=== PATIENT | female | born 1950 | race Caucasian/White ===

== ENCOUNTER 2019-02-15 13:46 | Observation (INO) ==
[2019-02-15] MEDS ORDERED: 0.9 % Sodium Chloride 1,000 ML IVC ONE ×2 (13:54→15:11)
[2019-02-15] MEDS ORDERED: Isovue-370 500 ML BOTTLE IVP ONE (13:54)
[2019-02-15] MEDS ORDERED: Ondansetron 4 MG/2 ML VIAL IVP ONE (13:54)
[2019-02-15] MEDS ORDERED: KETAMINE HCL 50 MG/ML SYRINGE IV ONE ×2 (13:55→14:07)
--- NOTE | 2019-02-15 13:59 | Emergency Department Note ---
Disposition Clinical Impression: Altered mental state Qualifiers: Altered mental status type: unspecified Qualified Code(s): R41.82 - Altered mental status, unspecified Disposition: Admitted As Inpatient Condition: Fair Referrals: NONE,PCP [Primary Care Provider] - Forms: ED Satisfaction Letter Time of Disposition: 19:01 Altered Mental Status HPI - General Chief Complaint: ED Altered Mental Status Stated Complaint: AMS, N/V Time Seen by Provider: 02/15/19 13:47 Nursing Notes Reviewed: Yes Vital Signs Reviewed: Yes - History of Present Illness HPI Narrative: 68-year-old female presents from home via EMS for evaluation of altered mentation. EMS was called by her . Patient had nausea with vomiting1 1 week ago. She was seen and evaluated by outside emergency department 4 days ago and discharged home. Patient complains of headache and photophobia otherwise she is unable to provide any history due to her altered mentation. Per family, patient is becoming increasingly confused and verbally combative over last several days. Patient's daughter's concern for aneurysmal rupture. History of cerebral aneurysm 13. 12 of which have been coiled. Patient's family notes patient has not eaten for approximately 1 week. Patient has multiple medications including buspar, trazodone, gabapentin, percocet, baclofen. Patient's symptoms began appx 3-4 d after beginning baclofen. ROS not obtainable secondary to patient's altered mentation. - Related Data Home Medications Medication Instructions Recorded Confirmed Baclofen [Lioresal] 10 mg PO TID 02/15/19 02/15/19 Brimonidine 0.2% [Alphagan] 1 drop BOTH EYES BID 02/15/19 02/15/19 Buspirone HCl [Buspar] 15 mg PO TID 02/15/19 02/15/19 Carvedilol [Coreg] 3.125 mg PO BIDWM 02/15/19 02/15/19 Cholecalciferol (D-3) [Vitamin D] 2,000 unit PO DAILY 02/15/19 02/15/19 Gabapentin [Neurontin] 600 mg PO TID 02/15/19 02/15/19 OxyCODONE/APAP 10/325 [Percocet 1 each PO Q6HR PRN 02/15/19 02/15/19 10/325 MG] Potassium Chloride Elixir 20 meq PO DAILY 02/15/19 02/15/19 [Potassium Chloride] Sertraline [Zoloft] 50 mg PO DAILY 02/15/19 02/15/19 amLODIPine [Norvasc] 5 mg PO DAILY 02/15/19 02/15/19 traZODone [TraZODone] 100 mg PO HS 02/15/19 02/15/19 Allergies Allergy/AdvReac Type Severity Reaction Status Date / Time No Known Allergies Allergy Verified 02/15/19 18:36 Review of Systems: As Per HPI Limitations: ROS unobtainable due to patients medical condition Physical Exam Vital Signs Reviewed General: Patient is alert, oriented to self, unable to follow commands. Head: atraumatic, normocephalic Eye: normal appearance, PERRL, EOMI, no scleral icterus, no conjunctival injection ENT: mucous membranes dry normal external ear exam Neck: normal inspection, trachea midline, full ROM Chest: normal inspection, symmetric chest rise Respiratory: Good respiratory effort. Bilateral breath sounds are clear without wheezing, crackles, or rhonchi. Cardiovascular: Regular rate and rhythm. No clicks, rubs, gallops, or murmors. Normal heart sounds. Abdomen: Scaphoid. Bowel sounds present normoactive. Abdomen is soft, nondistended, and nontender. No guarding or rebound. No organomegaly noted. Musculoskeletal: Spontaneously moving all extremities. Skin: warm, dry, intact. Neuro: GCS 15. No focal neurologic deficits observed; she does spontaneously moving all extremity. Psych: Patient is speaking in complete worsen sentences however, they are nonsensical. Course Course Narrative: EKG dated 02/15/19 at 14:05 interpreted as sinus rhythm with a rate of 57. [place] 120, curious 25, QTC 441. Normal axis. Nonspecific ST-T changes. Compared to previous dated 04/16/2013 showing no acute ischemic changes or comparison. Patient is altered. She spontaneously moving all extremities but is not able to follow verbal commands. She was given 2 mg/kg ketamine which did transiently still her movement. After she returned to her confusion and combativeness, she was given 10 mg IM Zyprexa. Per staff, patient's urine was scant thick and white; serup-consistency of purulence. Suspect this was simply vaginal discharge. The lab was unable to run this as urinalysis because it was too thick. Urine culture is pending. Repeat straight cath obtained after IVF bolus. Urine liquid, straw colored. UA not concerning for UTI. LP unremarkable. CXR unremarkable. EKG unremarkable. Serum chemistry unremarkable. CTA shows multiple aneurysmal clips per history. 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 Concern for poly pharmacy vs dementia vs other. No definitive cause found within the ED workup. No infectious for definitive vascular etiology found for patient's altered mentation. I discussed the above with the patient's family. They are agreeable to admission for continued evaluation monitoring. I discussed the above with neurology. They are agreeable to seeing the patient on consult. Recommendation of Seroquel daily at bedtime and continued Zyprexa given the patient's agitation. I discussed the above with the admitting hospitalist, Dr. Hough. He agrees to accept the patient with neurology on consultation. Angiography CT 02/15/19 13:54 IMPRESSION: Status post bilateral frontotemporal craniotomies, with multiple aneurysm clips in the regions of the bilateral ICA terminus and bilateral MCA bifurcations, in the regions of the anterior communicating artery and the basilar tip. Artifacts related to the aneurysm clips, limiting the evaluation of the adjacent structures. 3 x 3.5 x 4.6 mm saccular aneurysm at the right MCA bifurcation with apex directed superiorly. 3.5 x 2.7 x 3.3 mm saccular aneurysm at the origin of right posterior communicating artery with apex directed posterior inferiorly. No flow limiting stenosis of the major arteries of the head. Encephalomalacia in the bilateral anterior temporal lobes, bilateral inferior frontal lobes and anterior aspects of the bilateral insula cortex, likely related to postoperative changes and/or old infarctions. No acute intracranial abnormality. The results were sent to radiology results communication. D/ / Kodak Fernandez MD / Kodak Fernandez MD Interpreting Provider: Kodak Fernandez MD Chest X-Ray 02/15/19 13:54 IMPRESSION: No evidence for acute cardiopulmonary process. D/ / Rocael Cisse MD / Rocael Cisse MD Interpreting Provider: Rocael Cisse MD I discussed the patient with the admitting hospitalist, Dr. Hough. He is agreeable to accept the patient on the condition that I speak with neurology. Vital Signs Temperature 98.4 F 02/15/19 13:47 Pulse Rate 67 02/15/19 13:47 Respiratory Rate 17 02/15/19 13:47 Blood Pressure 121/80 02/15/19 13:47 O2 Sat by Pulse Oximetry 99 02/15/19 13:47 Temperature 98.4 F 02/15/19 13:47 Pulse Rate 52 02/15/19 15:48 Respiratory Rate 19 02/15/19 15:48 Blood Pressure 149/67 02/15/19 15:48 O2 Sat by Pulse Oximetry 98 02/15/19 15:48 Oxygen Delivery Oxygen Delivery Room Air Procedures - Lumbar Puncture Consent Obtained: verbal consent, written consent Time Out Performed: Yes Patient Position: left lateral decubitus Skin Prep: Povidone-Iodine 1% Local Anesthetic: lidocaine 1% Amount of anesthesia used (mL): 6 Spinal Needle Gauge: 20G Interspace Used: L3-L4 Fluid Initially Obtained: clear Complications: other (Patient not following verbal instruction. Though calm, required multiple holders for positioning.) Altered Mental Status - Lab Data Result diagrams: 02/15/19 13:58 02/15/19 13:58 Lab Results 02/15/19 02/15/19 02/15/19 Range/Units 13:58 13:58 13:58 WBC 11.8 H (4.3-11.1) K/mcL RBC 4.41 (3.82-4.97) M/mcL Hgb 13.8 (11.5-15.4) g/dL Hct 40.9 (35.3-44.9) % MCV 92.7 (83.0-100.0) fL MCH 31.3 (28.0-33.3) pg MCHC 33.7 (31.6-35.5) g/dL RDW 13.1 (11.5-14.5) % Plt Count 218 (140-400) K/mcL MPV 10.0 (9.4-12.4) fL Immature Gran % 0.4 (0-4) % Seg Neutrophils % 66.7 % Lymphocytes % 24.7 % Monocytes % 7.7 % Eosinophils % 0.2 % Basophils % 0.3 % Neutrophils # 7.9 (1.6-8.9) K/mcL Lymphocytes # 2.9 (0.6-4.6) K/mcL Monocytes # 0.9 (0.0-1.3) K/mcL Eosinophils # 0.0 (0.0-0.6) K/mcL Basophils # 0.0 (0.0-0.2) K/mcL ESR 24 H (0-15) mm/hr PT (9.4-12.1) Seconds INR Sodium 140 (136-145) mEq/L Potassium 4.5 (3.5-5.1) mEq/L Chloride 102 (98-107) mEq/L Carbon Dioxide 22 L (23-29) mEq/L BUN 40 H (8-23) mg/dL Creatinine 0.81 (0.60-1.20) mg/dL Est GFR ( Amer) > 60 (> 60) Est GFR (Non-Af Amer) > 60 (> 60) BUN/Creatinine Ratio 49 H (6-26) Glucose 132 H (70-105) mg/dL Calculated Osmolality 302 H (280-300) Lactic Acid (0.5-2.2) mmol/L Calcium 10.5 H (8.6-10.3) mg/dL Magnesium 2.0 (1.6-2.6) mg/dL Total Bilirubin 1.0 (0.3-1.0) mg/dL AST 22 (13-39) Units/L ALT 12 (7-52) Units/L Alkaline Phosphatase 66 (34-104) Units/L Ammonia (16-53) mcmol/L Troponin I 0.03 (< 0.04) ng/mL C-Reactive Protein < 5 (Less than 10) mg/L Serum Total Protein 8.0 (6.4-8.9) g/dL Albumin 4.9 (3.5-5.7) g/dL Globulin 3.1 (2.4-3.5) g/dL Albumin/Globulin Ratio 1.6 (1.1-2.2) TSH 0.146 L (0.340-5.600) mcIU/mL Urine Color (Yellow) Urine Clarity (Clear) Urine pH (5.0-8.0) pH Units Ur Specific [place] (1.010-1.025) Urine Protein (Neg-Trace) mg/dL Urine Glucose (UA) (Normal) mg/dL Urine Ketones (Negative) mg/dL Urine Blood (Negative) Urine Nitrite (Negative) Urine Bilirubin (Negative) Urine Urobilinogen (Normal) mg/dL Ur Leukocyte Esterase (Negative) Urine Microscopic RBC (0-3) per hpf Urine Microscopic WBC (0-3) per hpf Ur Squamous Epith Cells (None-Few) per lpf Urine Bacteria (None-Few) per hpf Hyaline Casts (None-Few) per lpf CSF Volume mL CSF Appearance (Clear) CSF Color (Colorless) CSF RBC (0.000 - 0.002) M/mcL CSF Tot Nucleated Cells (0-5) TNC/mcL CSF Glucose (40-70) mg/dL CSF Xanth Comm (Not Observe) CSF Total Protein (15-45) mg/dL Salicylates < 2.5 L (15.0-30.0) mg/dL Acetaminophen < 10 L (10-20) mcg/mL Ethyl Alcohol < 10 (Less than 10) mg/dL 02/15/19 02/15/19 02/15/19 Range/Units 13:58 13:58 14:30 WBC (4.3-11.1) K/mcL RBC (3.82-4.97) M/mcL Hgb (11.5-15.4) g/dL Hct (35.3-44.9) % MCV (83.0-100.0) fL MCH (28.0-33.3) pg MCHC (31.6-35.5) g/dL RDW (11.5-14.5) % Plt Count (140-400) K/mcL MPV (9.4-12.4) fL Immature Gran % (0-4) % Seg Neutrophils % % Lymphocytes % % Monocytes % % Eosinophils % % Basophils % % Neutrophils # (1.6-8.9) K/mcL Lymphocytes # (0.6-4.6) K/mcL Monocytes # (0.0-1.3) K/mcL Eosinophils # (0.0-0.6) K/mcL Basophils # (0.0-0.2) K/mcL ESR (0-15) mm/hr PT 12.5 H (9.4-12.1) Seconds INR 1.1 Sodium (136-145) mEq/L Potassium (3.5-5.1) mEq/L Chloride (98-107) mEq/L Carbon Dioxide (23-29) mEq/L BUN (8-23) mg/dL Creatinine (0.60-1.20) mg/dL Est GFR ( Amer) (> 60) Est GFR (Non-Af Amer) (> 60) BUN/Creatinine Ratio (6-26) Glucose (70-105) mg/dL Calculated Osmolality (280-300) Lactic Acid 1.7 (0.5-2.2) mmol/L Calcium (8.6-10.3) mg/dL Magnesium (1.6-2.6) mg/dL Total Bilirubin (0.3-1.0) mg/dL AST (13-39) Units/L ALT (7-52) Units/L Alkaline Phosphatase (34-104) Units/L Ammonia 42 (16-53) mcmol/L Troponin I (< 0.04) ng/mL C-Reactive Protein (Less than 10) mg/L Serum Total Protein (6.4-8.9) g/dL Albumin (3.5-5.7) g/dL Globulin (2.4-3.5) g/dL Albumin/Globulin Ratio (1.1-2.2) TSH (0.340-5.600) mcIU/mL Urine Color (Yellow) Urine Clarity (Clear) Urine pH (5.0-8.0) pH Units Ur Specific [place] (1.010-1.025) Urine Protein (Neg-Trace) mg/dL Urine Glucose (UA) (Normal) mg/dL Urine Ketones (Negative) mg/dL Urine Blood (Negative) Urine Nitrite (Negative) Urine Bilirubin (Negative) Urine Urobilinogen (Normal) mg/dL Ur Leukocyte Esterase (Negative) Urine Microscopic RBC (0-3) per hpf Urine Microscopic WBC (0-3) per hpf Ur Squamous Epith Cells (None-Few) per lpf Urine Bacteria (None-Few) per hpf Hyaline Casts (None-Few) per lpf CSF Volume mL CSF Appearance (Clear) CSF Color (Colorless) CSF RBC (0.000 - 0.002) M/mcL CSF Tot Nucleated Cells (0-5) TNC/mcL CSF Glucose (40-70) mg/dL CSF Xanth Comm (Not Observe) CSF Total Protein (15-45) mg/dL Salicylates (15.0-30.0) mg/dL Acetaminophen (10-20) mcg/mL Ethyl Alcohol (Less than 10) mg/dL 02/15/19 02/15/19 Range/Units 15:35 16:48 WBC (4.3-11.1) K/mcL RBC (3.82-4.97) M/mcL Hgb (11.5-15.4) g/dL Hct (35.3-44.9) % MCV (83.0-100.0) fL MCH (28.0-33.3) pg MCHC (31.6-35.5) g/dL RDW (11.5-14.5) % Plt Count (140-400) K/mcL MPV (9.4-12.4) fL Immature Gran % (0-4) % Seg Neutrophils % % Lymphocytes % % Monocytes % % Eosinophils % % Basophils % % Neutrophils # (1.6-8.9) K/mcL Lymphocytes # (0.6-4.6) K/mcL Monocytes # (0.0-1.3) K/mcL Eosinophils # (0.0-0.6) K/mcL Basophils # (0.0-0.2) K/mcL ESR (0-15) mm/hr PT (9.4-12.1) Seconds INR Sodium (136-145) mEq/L Potassium (3.5-5.1) mEq/L Chloride (98-107) mEq/L Carbon Dioxide (23-29) mEq/L BUN (8-23) mg/dL Creatinine (0.60-1.20) mg/dL Est GFR ( Amer) (> 60) Est GFR (Non-Af Amer) (> 60) BUN/Creatinine Ratio (6-26) Glucose (70-105) mg/dL Calculated Osmolality (280-300) Lactic Acid (0.5-2.2) mmol/L Calcium (8.6-10.3) mg/dL Magnesium (1.6-2.6) mg/dL Total Bilirubin (0.3-1.0) mg/dL AST (13-39) Units/L ALT (7-52) Units/L Alkaline Phosphatase (34-104) Units/L Ammonia (16-53) mcmol/L Troponin I (< 0.04) ng/mL C-Reactive Protein (Less than 10) mg/L Serum Total Protein (6.4-8.9) g/dL Albumin (3.5-5.7) g/dL Globulin (2.4-3.5) g/dL Albumin/Globulin Ratio (1.1-2.2) TSH (0.340-5.600) mcIU/mL Urine Color Yellow (Yellow) Urine Clarity Clear (Clear) Urine pH 6.5 (5.0-8.0) pH Units Ur Specific [place] 1.028 H (1.010-1.025) Urine Protein Negative (Neg-Trace) mg/dL Urine Glucose (UA) Normal (Normal) mg/dL Urine Ketones 15 H (Negative) mg/dL Urine Blood Trace H (Negative) Urine Nitrite Negative (Negative) Urine Bilirubin Negative (Negative) Urine Urobilinogen Normal (Normal) mg/dL Ur Leukocyte Esterase Negative (Negative) Urine Microscopic RBC 0-3 (0-3) per hpf Urine Microscopic WBC 0-3 (0-3) per hpf Ur Squamous Epith Cells Many H (None-Few) per lpf Urine Bacteria None Seen (None-Few) per hpf Hyaline Casts None Seen (None-Few) per lpf CSF Volume 2.0 mL CSF Appearance Clear (Clear) CSF Color Colorless (Colorless) CSF RBC < 0.002 (0.000 - 0.002) M/mcL CSF Tot Nucleated Cells < 3 (0-5) TNC/mcL CSF Glucose 72 H (40-70) mg/dL CSF Xanth Comm Not Observed (Not Observe) CSF Total Protein 41 (15-45) mg/dL Salicylates (15.0-30.0) mg/dL Acetaminophen (10-20) mcg/mL Ethyl Alcohol (Less than 10) mg/dL TPA Checklist - LKW: 3-4.5 hrs Add. Warnings/Precautions Patient/family understanding: The patient/family members have been counseled and understood the risk, benefit, and alternatives of treatment.
--- NOTE | 2019-02-15 13:59 | Emergency Department Note ---
Disposition Clinical Impression: Altered mental state Disposition: Admitted As Inpatient Condition: Fair General Adult HPI - General Chief complaint: ED Altered Mental Status Stated complaint: AMS, N/V Time Seen by Provider: 02/15/19 13:47 - Related Data Home Medications Medication Instructions Recorded Confirmed Baclofen [Lioresal] 10 mg PO TID 02/15/19 02/15/19 Brimonidine 0.2% [Alphagan] 1 drop BOTH EYES BID 02/15/19 02/15/19 Buspirone HCl [Buspar] 15 mg PO TID 02/15/19 02/15/19 Carvedilol [Coreg] 3.125 mg PO BIDWM 02/15/19 02/15/19 Cholecalciferol (D-3) [Vitamin D] 2,000 unit PO DAILY 02/15/19 02/15/19 Gabapentin [Neurontin] 600 mg PO TID 02/15/19 02/15/19 OxyCODONE/APAP 10/325 [Percocet 1 each PO Q6HR PRN 02/15/19 02/15/19 10/325 MG] RX: Potassium Chloride Elixir 20 meq PO DAILY 02/15/19 02/15/19 [Potassium Chloride] RX: traZODone [TraZODone] 100 mg PO HS 02/15/19 02/15/19 Sertraline [Zoloft] 50 mg PO DAILY 02/15/19 02/15/19 amLODIPine [Norvasc] 5 mg PO DAILY 02/15/19 02/15/19 Allergies Allergy/AdvReac Type Severity Reaction Status Date / Time No Known Allergies Allergy Verified 02/15/19 18:36 Course Vital Signs Temperature 98.4 F 02/15/19 13:47 Pulse Rate 67 02/15/19 13:47 Respiratory Rate 17 02/15/19 13:47 Blood Pressure 121/80 02/15/19 13:47 O2 Sat by Pulse Oximetry 99 02/15/19 13:47 Temperature 97.7 F 02/15/19 21:13 Pulse Rate 53 02/15/19 21:13 Respiratory Rate 17 02/15/19 21:13 Blood Pressure 181/79 02/15/19 21:13 O2 Sat by Pulse Oximetry 98 02/15/19 21:13 Oxygen Delivery Oxygen Delivery Room Air Medical Decision Making - Lab Data Result diagrams: 02/15/19 13:58 02/15/19 13:58 Lab Results 02/15/19 02/15/19 02/15/19 Range/Units 13:58 13:58 13:58 WBC 11.8 H (4.3-11.1) K/mcL RBC 4.41 (3.82-4.97) M/mcL Hgb 13.8 (11.5-15.4) g/dL Hct 40.9 (35.3-44.9) % MCV 92.7 (83.0-100.0) fL MCH 31.3 (28.0-33.3) pg MCHC 33.7 (31.6-35.5) g/dL RDW 13.1 (11.5-14.5) % Plt Count 218 (140-400) K/mcL MPV 10.0 (9.4-12.4) fL Immature Gran % 0.4 (0-4) % Seg Neutrophils % 66.7 % Lymphocytes % 24.7 % Monocytes % 7.7 % Eosinophils % 0.2 % Basophils % 0.3 % Neutrophils # 7.9 (1.6-8.9) K/mcL Lymphocytes # 2.9 (0.6-4.6) K/mcL Monocytes # 0.9 (0.0-1.3) K/mcL Eosinophils # 0.0 (0.0-0.6) K/mcL Basophils # 0.0 (0.0-0.2) K/mcL ESR 24 H (0-15) mm/hr PT (9.4-12.1) Seconds INR Sodium 140 (136-145) mEq/L Potassium 4.5 (3.5-5.1) mEq/L Chloride 102 (98-107) mEq/L Carbon Dioxide 22 L (23-29) mEq/L BUN 40 H (8-23) mg/dL Creatinine 0.81 (0.60-1.20) mg/dL Est GFR ( Amer) > 60 (> 60) Est GFR (Non-Af Amer) > 60 (> 60) BUN/Creatinine Ratio 49 H (6-26) Glucose 132 H (70-105) mg/dL POC Glucose (70-99) mg/dL Calculated Osmolality 302 H (280-300) Lactic Acid (0.5-2.2) mmol/L Calcium 10.5 H (8.6-10.3) mg/dL Magnesium 2.0 (1.6-2.6) mg/dL Total Bilirubin 1.0 (0.3-1.0) mg/dL AST 22 (13-39) Units/L ALT 12 (7-52) Units/L Alkaline Phosphatase 66 (34-104) Units/L Ammonia (16-53) mcmol/L Troponin I 0.03 (< 0.04) ng/mL C-Reactive Protein < 5 (Less than 10) mg/L Serum Total Protein 8.0 (6.4-8.9) g/dL Albumin 4.9 (3.5-5.7) g/dL Globulin 3.1 (2.4-3.5) g/dL Albumin/Globulin Ratio 1.6 (1.1-2.2) TSH 0.146 L (0.340-5.600) mcIU/mL Urine Color (Yellow) Urine Clarity (Clear) Urine pH (5.0-8.0) pH Units Ur Specific [place] (1.010-1.025) Urine Protein (Neg-Trace) mg/dL Urine Glucose (UA) (Normal) mg/dL Urine Ketones (Negative) mg/dL Urine Blood (Negative) Urine Nitrite (Negative) Urine Bilirubin (Negative) Urine Urobilinogen (Normal) mg/dL Ur Leukocyte Esterase (Negative) Urine Microscopic RBC (0-3) per hpf Urine Microscopic WBC (0-3) per hpf Ur Squamous Epith Cells (None-Few) per lpf Urine Bacteria (None-Few) per hpf Hyaline Casts (None-Few) per lpf CSF Volume mL CSF Appearance (Clear) CSF Color (Colorless) CSF RBC (0.000 - 0.002) M/mcL CSF Tot Nucleated Cells (0-5) TNC/mcL CSF Glucose (40-70) mg/dL CSF Xanth Comm (Not Observe) CSF Total Protein (15-45) mg/dL Salicylates < 2.5 L (15.0-30.0) mg/dL Acetaminophen < 10 L (10-20) mcg/mL Ethyl Alcohol < 10 (Less than 10) mg/dL 02/15/19 02/15/19 02/15/19 Range/Units 13:58 13:58 14:30 WBC (4.3-11.1) K/mcL RBC (3.82-4.97) M/mcL Hgb (11.5-15.4) g/dL Hct (35.3-44.9) % MCV (83.0-100.0) fL MCH (28.0-33.3) pg MCHC (31.6-35.5) g/dL RDW (11.5-14.5) % Plt Count (140-400) K/mcL MPV (9.4-12.4) fL Immature Gran % (0-4) % Seg Neutrophils % % Lymphocytes % % Monocytes % % Eosinophils % % Basophils % % Neutrophils # (1.6-8.9) K/mcL Lymphocytes # (0.6-4.6) K/mcL Monocytes # (0.0-1.3) K/mcL Eosinophils # (0.0-0.6) K/mcL Basophils # (0.0-0.2) K/mcL ESR (0-15) mm/hr PT 12.5 H (9.4-12.1) Seconds INR 1.1 Sodium (136-145) mEq/L Potassium (3.5-5.1) mEq/L Chloride (98-107) mEq/L Carbon Dioxide (23-29) mEq/L BUN (8-23) mg/dL Creatinine (0.60-1.20) mg/dL Est GFR ( Amer) (> 60) Est GFR (Non-Af Amer) (> 60) BUN/Creatinine Ratio (6-26) Glucose (70-105) mg/dL POC Glucose (70-99) mg/dL Calculated Osmolality (280-300) Lactic Acid 1.7 (0.5-2.2) mmol/L Calcium (8.6-10.3) mg/dL Magnesium (1.6-2.6) mg/dL Total Bilirubin (0.3-1.0) mg/dL AST (13-39) Units/L ALT (7-52) Units/L Alkaline Phosphatase (34-104) Units/L Ammonia 42 (16-53) mcmol/L Troponin I (< 0.04) ng/mL C-Reactive Protein (Less than 10) mg/L Serum Total Protein (6.4-8.9) g/dL Albumin (3.5-5.7) g/dL Globulin (2.4-3.5) g/dL Albumin/Globulin Ratio (1.1-2.2) TSH (0.340-5.600) mcIU/mL Urine Color (Yellow) Urine Clarity (Clear) Urine pH (5.0-8.0) pH Units Ur Specific [place] (1.010-1.025) Urine Protein (Neg-Trace) mg/dL Urine Glucose (UA) (Normal) mg/dL Urine Ketones (Negative) mg/dL Urine Blood (Negative) Urine Nitrite (Negative) Urine Bilirubin (Negative) Urine Urobilinogen (Normal) mg/dL Ur Leukocyte Esterase (Negative) Urine Microscopic RBC (0-3) per hpf Urine Microscopic WBC (0-3) per hpf Ur Squamous Epith Cells (None-Few) per lpf Urine Bacteria (None-Few) per hpf Hyaline Casts (None-Few) per lpf CSF Volume mL CSF Appearance (Clear) CSF Color (Colorless) CSF RBC (0.000 - 0.002) M/mcL CSF Tot Nucleated Cells (0-5) TNC/mcL CSF Glucose (40-70) mg/dL CSF Xanth Comm (Not Observe) CSF Total Protein (15-45) mg/dL Salicylates (15.0-30.0) mg/dL Acetaminophen (10-20) mcg/mL Ethyl Alcohol (Less than 10) mg/dL 02/15/19 02/15/19 02/15/19 Range/Units 14:44 15:35 16:48 WBC (4.3-11.1) K/mcL RBC (3.82-4.97) M/mcL Hgb (11.5-15.4) g/dL Hct (35.3-44.9) % MCV (83.0-100.0) fL MCH (28.0-33.3) pg MCHC (31.6-35.5) g/dL RDW (11.5-14.5) % Plt Count (140-400) K/mcL MPV (9.4-12.4) fL Immature Gran % (0-4) % Seg Neutrophils % % Lymphocytes % % Monocytes % % Eosinophils % % Basophils % % Neutrophils # (1.6-8.9) K/mcL Lymphocytes # (0.6-4.6) K/mcL Monocytes # (0.0-1.3) K/mcL Eosinophils # (0.0-0.6) K/mcL Basophils # (0.0-0.2) K/mcL ESR (0-15) mm/hr PT (9.4-12.1) Seconds INR Sodium (136-145) mEq/L Potassium (3.5-5.1) mEq/L Chloride (98-107) mEq/L Carbon Dioxide (23-29) mEq/L BUN (8-23) mg/dL Creatinine (0.60-1.20) mg/dL Est GFR ( Amer) (> 60) Est GFR (Non-Af Amer) (> 60) BUN/Creatinine Ratio (6-26) Glucose (70-105) mg/dL POC Glucose 95 (70-99) mg/dL Calculated Osmolality (280-300) Lactic Acid (0.5-2.2) mmol/L Calcium (8.6-10.3) mg/dL Magnesium (1.6-2.6) mg/dL Total Bilirubin (0.3-1.0) mg/dL AST (13-39) Units/L ALT (7-52) Units/L Alkaline Phosphatase (34-104) Units/L Ammonia (16-53) mcmol/L Troponin I (< 0.04) ng/mL C-Reactive Protein (Less than 10) mg/L Serum Total Protein (6.4-8.9) g/dL Albumin (3.5-5.7) g/dL Globulin (2.4-3.5) g/dL Albumin/Globulin Ratio (1.1-2.2) TSH (0.340-5.600) mcIU/mL Urine Color Yellow (Yellow) Urine Clarity Clear (Clear) Urine pH 6.5 (5.0-8.0) pH Units Ur Specific [place] 1.028 H (1.010-1.025) Urine Protein Negative (Neg-Trace) mg/dL Urine Glucose (UA) Normal (Normal) mg/dL Urine Ketones 15 H (Negative) mg/dL Urine Blood Trace H (Negative) Urine Nitrite Negative (Negative) Urine Bilirubin Negative (Negative) Urine Urobilinogen Normal (Normal) mg/dL Ur Leukocyte Esterase Negative (Negative) Urine Microscopic RBC 0-3 (0-3) per hpf Urine Microscopic WBC 0-3 (0-3) per hpf Ur Squamous Epith Cells Many H (None-Few) per lpf Urine Bacteria None Seen (None-Few) per hpf Hyaline Casts None Seen (None-Few) per lpf CSF Volume 2.0 mL CSF Appearance Clear (Clear) CSF Color Colorless (Colorless) CSF RBC < 0.002 (0.000 - 0.002) M/mcL CSF Tot Nucleated Cells < 3 (0-5) TNC/mcL CSF Glucose 72 H (40-70) mg/dL CSF Xanth Comm Not Observed (Not Observe) CSF Total Protein 41 (15-45) mg/dL Salicylates (15.0-30.0) mg/dL Acetaminophen (10-20) mcg/mL Ethyl Alcohol (Less than 10) mg/dL Critical Care Time Critical Care Time: Yes Total Critical Care Time: 30 Attestation: The high probability of a clinically significant, sudden or life threatening deterioration of the [] system(s) required my full and direct attention, intervention and personal management. The aggregate critical care time was [] minutes. This time is in addition to time spent performing reported procedures but includes the following: [] Data Review and interpretation [] Patient assessment and monitoring of vital signs [] Documentation [] Medication orders and management Attestation Statement - Attestation Attestation: I examined this patient and my medical decision-making was reviewed with the Resident Physician. I agree with the documented findings, disposition and treatment plan as described except to the extent set forth below. [id number] time provided Patient presents to the emergency department with agitation. Most history obtained from family. The patient has been verbally combative over the past several days. She has complained of a headache and photophobia. She has a history of cerebral aneurysms. At the time of arrival the patient appears delirious. She is somewhat uncooperative with the history and physical. She will require IV ketamine to facilitate medical evaluation 16:54: No identifiable etiology of the patient's confusion has been identified. I did discuss the risks, benefits, alternatives of a lumbar puncture with the patient's family who consented on her behalf. The procedure was performed by the resident physician under my supervision.
[2019-02-15] MEDS ORDERED: OLANZapine 10 MG VIAL IM ONE (14:25)
[2019-02-15 14:29] LABS: Basophils % 0.3 %; Eosinophils % 0.2 %; Hematocrit 40.9 % (35.3-44.9); Hemoglobin 13.8 g/dL (11.5-15.4); Immature Granulocytes % 0.4 % (0-4); Lymphocytes # 2.9 K/mcL (0.6-4.6); Lymphocytes % 24.7 %; Mean Corpuscular HGB Conc 33.7 g/dL (31.6-35.5); Mean Corpuscular Hemoglobin 31.3 pg (28.0-33.3); Mean Corpuscular Volume 92.7 fL (83.0-100.0); Monocytes # 0.9 K/mcL (0.0-1.3); Monocytes % 7.7 %; Neutrophils # 7.9 K/mcL (1.6-8.9); Platelet Count 218 K/mcL (140-400); Red Blood Count 4.41 M/mcL (3.82-4.97); Red Cell Distribution Width 13.1 % (11.5-14.5); Segmented Neutrophils % 66.7 %
[2019-02-15 14:38] LABS: INR 1.1; Prothrombin Time 12.5 Seconds (9.4-12.1)
[2019-02-15] MEDS ORDERED: Water for inj. (sterile) 10 ML IV ONE (14:45)
[2019-02-15 15:08] LABS: Acetaminophen < 10 mcg/mL (10-20); Alanine Aminotransferase 12 Units/L (7-52); Albumin 4.9 g/dL (3.5-5.7); Albumin/Globulin Ratio 1.6 (1.1-2.2); Alkaline Phosphatase 66 Units/L (34-104); Aspartate Amino Transferase 22 Units/L (13-39); BUN/Creatinine Ratio 49 (6-26); Blood Urea Nitrogen 40 mg/dL (8-23); C-Reactive Protein < 5 mg/L (Less than 10); Calcium 10.5 mg/dL (8.6-10.3); Carbon Dioxide 22 mEq/L (23-29); Chloride 102 mEq/L (98-107); Ethanol < 10 mg/dL (Less than 10); Globulin 3.1 g/dL (2.4-3.5); Glucose 132 mg/dL (70-105); Osmolality,Calculated 302 (280-300); Potassium 4.5 mEq/L (3.5-5.1); Salicylate < 2.5 mg/dL (15.0-30.0); Sodium 140 mEq/L (136-145); Thyroid Stimulating Hormone 0.146 mcIU/mL (0.340-5.600); Troponin I 0.03 ng/mL (< 0.04); eGFR For Non-African Americans > 60 (> 60)
[2019-02-15 15:50] LABS: Bilirubin,Urine Negative (Negative); Blood,Urine Trace (Negative); Clarity,Urine Clear (Clear); Color,Urine Yellow (Yellow); Glucose,Urine (UA) Normal (Normal); Ketones,Urine 15 mg/dL (Negative); Leukocyte Esterase,Urine Negative (Negative); Nitrite,Urine Negative (Negative); PH,Urine 6.5 pH Units (5.0-8.0); Protein,Urine Negative (Neg-Trace); Specific Gravity,Urine 1.028 (1.010-1.025); Urobilinogen,Urine Normal (Normal)
[2019-02-15 15:56] LABS: Bacteria,Urine None Seen per hpf (None-Few); Hyaline Casts,Urine None Seen per lpf (None-Few); RBC,Urine 0-3 per hpf (0-3); Squamous Epithelial Cell,Urine Many per lpf (None-Few); WBC,Urine 0-3 per hpf (0-3)
[2019-02-15] MEDS ORDERED: *HR* Midazolam HCl 2 MG/2 ML VIAL IVP ONE (16:07)
[2019-02-15 17:03] LABS: Red Blood Cell,CSF < 0.002 M/mcL
[2019-02-15 17:04] LABS: Appearance,CSF Clear (Clear)
[2019-02-15 17:30] LABS: Glucose,CSF 72 mg/dL (40-70); Total Protein,CSF 41 mg/dL (15-45)
[2019-02-15] MEDS ORDERED: Acetaminophen 325 MG TABLET PO PRN (20:13)
[2019-02-15] MEDS ORDERED: 0.9 % Sodium Chloride 1,000 ML IVC SCH (20:15)
[2019-02-15] MEDS ORDERED: Ondansetron 4 MG/2 ML VIAL IVP PRN (21:26)
[2019-02-15] MEDS ORDERED: Ketorolac 15 MG/ML VIAL IVP ONE (21:28)
--- NOTE | 2019-02-15 21:42 | Internal Med History&Physical ---
Date of Encounter: 02/15/19 Time of Encounter: 21:39 Internal Medicine - H&P: HPI Chief complaint: AMS Admitted From: Home Plans for Post Hospital Care: Home History of present illness: Thien Cochran is a 68 year old woman with a history of bilateral frontotemporal craniotomies, with multiple aneurysm clippings done with resultant encephalomalacia and persistent saccular aneurysms who was accepted for admission by my predecessor who was brought in by her family members for change in mental status has been noted over the last several days. As per report, they state that she has been more verbally aggressive and combative; she complains daily of nausea with vomiting as well as headaches and photophobia. They noticed that she is more confused than usual and hence concern for aneurysmal rupture. Her oral intake has been poor over this past 1 week. It was noted that she is on multiple centrally sedative medications, most recently baclofen introduced 3 to 4 days prior to these changes noted. In the ER she was noted hemodynamically stable with sinus bradycardia in the 50s. She appeared notably altered and was given intravenous ketamine followed by intramuscular olanzapine. Lab work was grossly unremarkable, UA not concerning for UTI, lumbar puncture done with CSF results not suggestive of infection, chest x-ray with no acute anomalies, serum chemistry within normal limits and a CTA done showing the plethora of aneurysmal clips but no acute bleed. Through the workup, there was no evidence of an infectious or vascular etiology and her change in mental status and consideration was given to polypharmacy or dementia. Given her current condition, neurology was consulted and will be evaluated in the morning. In the interim, it was recommended that she receive a dose of Quetiapine tonight. She will be observed overnight. At the time of my assessment, family members were not present for me to ask questions to therefore the bulk of information is obtained from ED staff and chart review. She was verbal and not combative, complaining of headaches and covering her head with a towel. She had notable photophobia. No fever, chills, abdominal pain, or dysuria reported. Past Med Surg Social Fam HX - Past Medical History Medical history: other Additional medical history: brain cysts - Social History Smoking Status: Current every day smoker Alcohol use: none Drug use: marijuana Internal Medicine - H&P: Meds Baclofen [Lioresal] 10 mg PO TID 02/15/19 [History] Brimonidine 0.2% [Alphagan] 1 drop BOTH EYES BID 02/15/19 [History] Buspirone HCl [Buspar] 15 mg PO TID 02/15/19 [History] Carvedilol [Coreg] 3.125 mg PO BIDWM 02/15/19 [History] Cholecalciferol (D-3) [Vitamin D] 2,000 unit PO DAILY 02/15/19 [History] Gabapentin [Neurontin] 600 mg PO TID 02/15/19 [History] OxyCODONE/APAP 10/325 [Percocet 10/325 MG] 1 each PO Q6HR PRN 02/15/19 [History] Potassium Chloride Elixir [Potassium Chloride] 20 meq PO DAILY 02/15/19 [History] Sertraline [Zoloft] 50 mg PO DAILY 02/15/19 [History] amLODIPine [Norvasc] 5 mg PO DAILY 02/15/19 [History] traZODone [TraZODone] 100 mg PO HS 02/15/19 [History] Allergy/AdvReac Type Severity Reaction Status Date / Time No Known Allergies Allergy Verified 02/15/19 18:36 All Systems PM: A 10-system review of systems was performed and is negative for pertinent findings except as documented above in the HPI.Family history reviewed and found non-contributory. - Constitutional Vitals: Temp Pulse Resp BP Pulse Ox 97.7 F 53 17 181/79 98 02/15/19 21:13 02/15/19 21:13 02/15/19 21:13 02/15/19 21:13 02/15/19 21:13 Exam: Vitals: Reviewed General: Cachectic elderly woman Skin: Warm, dry HEENT: Moist mucous membranes. No conjunctivae pallor. Neck: No lymphadenopathy. No JVD. No carotid bruits. No palpable thyroid. Chest: Normal thoracic expansion. Normal breath sounds. Clear to auscultation. Heart: Normal S1 & S2; rhythmic. No rubs or murmurs. Abdomen: Non-distended, soft and non-tender to palpation. No peritoneal react ion. Extremities: No clubbing, cyanosis or edema. No calf tenderness. Normal distal pulses. Neurological: Awake, alert and oriented to person. No focal deficits apparent. Psych: Tangential. Internal Med - H&P Results - Labs CBC & Chem 7: 02/15/19 13:58 02/15/19 13:58 Labs: Short CBC 02/15/19 Range/Units 13:58 WBC 11.8 H (4.3-11.1) K/mcL Hgb 13.8 (11.5-15.4) g/dL Hct 40.9 (35.3-44.9) % Plt Count 218 (140-400) K/mcL Neutrophils # 7.9 (1.6-8.9) K/mcL BMP 02/15/19 13:58 Sodium 140 Potassium 4.5 Chloride 102 Carbon Dioxide 22 L BUN 40 H Creatinine 0.81 Glucose 132 H Calcium 10.5 H Cardiac Enzymes 02/15/19 Range/Units 13:58 Troponin I 0.03 (< 0.04) ng/mL Liver Function 02/15/19 Range/Units 13:58 Total Bilirubin 1.0 (0.3-1.0) mg/dL AST 22 (13-39) Units/L ALT 12 (7-52) Units/L Alkaline Phosphatase 66 (34-104) Units/L Albumin 4.9 (3.5-5.7) g/dL Urine 02/15/19 Range/Units 15:35 Urine Color Yellow (Yellow) Urine Clarity Clear (Clear) Urine pH 6.5 (5.0-8.0) pH Units Ur Specific [place] 1.028 H (1.010-1.025) Urine Protein Negative (Neg-Trace) mg/dL Urine Glucose (UA) Normal (Normal) mg/dL - Impressions ITS Impressions Angiography CT 02/15/19 13:54 IMPRESSION: Status post bilateral frontotemporal craniotomies, with multiple aneurysm clips in the regions of the bilateral ICA terminus and bilateral MCA bifurcations, in the regions of the anterior communicating artery and the basilar tip. Artifacts related to the aneurysm clips, limiting the evaluation of the adjacent structures. 3 x 3.5 x 4.6 mm saccular aneurysm at the right MCA bifurcation with apex directed superiorly. 3.5 x 2.7 x 3.3 mm saccular aneurysm at the origin of right posterior communicating artery with apex directed posterior inferiorly. No flow limiting stenosis of the major arteries of the head. Encephalomalacia in the bilateral anterior temporal lobes, bilateral inferior frontal lobes and anterior aspects of the bilateral insula cortex, likely related to postoperative changes and/or old infarctions. No acute intracranial abnormality. The results were sent to radiology results communication. D/ / Kodak Fernandez MD / Kodak Fernandez MD Interpreting Provider: Kodak Fernandez MD Chest X-Ray 02/15/19 13:54 IMPRESSION: No evidence for acute cardiopulmonary process. D/ / Rocael Cisse MD / Rocael Cisse MD Interpreting Provider: Rocael Cisse MD - Assessment and Plan (1) Encephalopathy acute Current Visit: Yes Status: Acute Assessment and plan: Unclear etiology. Will need to contact family members to get a better story about the onset of change and what the exact new changes are in comparison to her baseline. Thus far a vascular and infectious etiology has not been identified. Concern for vascular dementia should be considered as well as medication side effects. Will hold off on any of her potentially TABLE RUNNER altering medications for now until evaluated by neurology. Attempt to control her headaches and nausea. Given the concomitant bradycardia, with headache and nausea, I have the concern for developing intracranial hypertension however evidence of this was not seen on CT. Will need close clinical monitoring and perhaps repeat imaging. Given the 1 week evolution of symptoms however, this would already have appeared on imaging therefore making it less likely to be at play. (2) History of cerebral aneurysm repair Current Visit: Yes Status: Acute Assessment and plan: Appears to be stable based on CT. She is unable to tell me when and where it was done. Will continue to monitor neurologic status. (3) Malnutrition Current Visit: Yes Status: Acute Assessment and plan: Notably malnourished per exam. Will consult nutrition for PO supplementation. Qualifiers: Malnutrition type: protein-calorie malnutrition Protein-calorie malnutrition severity: moderate Qualified Code(s): E44.0 - Moderate protein-calorie malnutrition (4) Low TSH level Current Visit: Yes Status: Acute Assessment and plan: It was seen to be normal in 2013. It does not appear she is on any thyroid supplements which would be causing TSH suppression. Unclear if this is contributing to her mental status changes. Will check free T3 /T4 for assessment. - Time Spent With Patient Total time spent is greater than 50% in coordination of care (as documented) at patient's floor/unit and/or counseling patient: Greater than 35 minutes
[2019-02-16] MEDS ORDERED: *HR* Heparin 5,000 UNIT/ML VIAL SQ SCH (06:00)
[2019-02-16 07:18] LABS: Basophils # 0.1 K/mcL (0.0-0.2); Basophils % 0.7 %; Eosinophils # 0.1 K/mcL (0.0-0.6); Eosinophils % 0.8 %; Hematocrit 35.5 % (35.3-44.9); Immature Granulocytes % 0.5 % (0-4); Lymphocytes # 2.7 K/mcL (0.6-4.6); Lymphocytes % 32.3 %; Mean Corpuscular HGB Conc 33.2 g/dL (31.6-35.5); Mean Corpuscular Hemoglobin 31.1 pg (28.0-33.3); Mean Corpuscular Volume 93.4 fL (83.0-100.0); Mean Platelet Volume 9.5 fL (9.4-12.4); Monocytes # 0.8 K/mcL (0.0-1.3); Monocytes % 9.3 %; Neutrophils # 4.8 K/mcL (1.6-8.9); Platelet Count 145 K/mcL (140-400); Red Cell Distribution Width 12.8 % (11.5-14.5); Segmented Neutrophils % 56.4 %
[2019-02-16 07:19] LABS: Hemoglobin 11.8 g/dL (11.5-15.4)
[2019-02-16 08:12] LABS: BUN/Creatinine Ratio 42 (6-26); Blood Urea Nitrogen 18 mg/dL (8-23); Calcium 9.1 mg/dL (8.6-10.3); Carbon Dioxide 24 mEq/L (23-29); Chloride 101 mEq/L (98-107); Glucose 96 mg/dL (70-105); Osmolality,Calculated 282 (280-300); Sodium 135 mEq/L (136-145); Triiodothyronine (T3) Free 2.71 pg/mL (2.50-3.90); eGFR For Non-African Americans > 60 (> 60)
--- NOTE | 2019-02-16 09:08 | Internal Med Progress Note ---
Hospitalist Progress Note - Encounter Date of Encounter: 02/16/19 Time of Encounter: 11:00 - Subjective Interval History: Patient with past medical history significant for bilateral frontotemporal craniotomies, with multiple aneurysm clippings done with resultant encephalomalacia and persistent saccular aneurysms who presents due to altered mental status. No acute findings on CTA of the head; neurology following - Exam Vitals: Temp Pulse Resp BP Pulse Ox 98.3 F 57 13 156/87 97 02/16/19 06:55 02/16/19 06:55 02/16/19 06:55 02/16/19 06:20 02/16/19 06:20 Exam: Gen.: Nonacute distress, alert and oriented 3 ENT: Mucosal membranes moist Respiratory: Lungs are clear to auscultation bilaterally without any wheezing rhonchi or rales Cardiovascular: Normal S1 and S2 regular rate rhythm no murmurs rubs or gallops Abdomen: Soft, nontender and nondistended with positive bowel sounds Extremities: No lower extremity edema Skin: Normal color - Assessment and Plan (1) Encephalopathy acute Current Visit: Yes Status: Acute Assessment and Plan: Patient presents with altered mental status Unclear etiology. Etiology unclear as there is no evidence of vascular or infectious source. Will continue to hold any potentially SAILING OFFICER altering medications. Neurology consulted and does not think neurologically related but suspect psy chological with recommendations for psychiatry consult. Psychiatry consulted and appreciate recommendations (2) History of cerebral aneurysm repair Current Visit: Yes Status: Acute Assessment and Plan: Appears to be stable based on CT. Will continue to monitor neurologic status. Neurology consulted and appreciate recommendations (3) Malnutrition Current Visit: Yes Status: Acute Assessment and Plan: BMI of 17.6 Nutrition consulted and appreciate recommendations (4) Low TSH level Current Visit: Yes Status: Acute - Time Spent with Patient Total time spent is greater than 50% in coordination of care (as documented) at patient's floor/unit and/or counseling patient: Internal Medicine: Result - Labs CBC & Chem 7: 02/16/19 07:07 02/16/19 07:07 Labs: Short CBC 02/15/19 02/16/19 Range/Units 13:58 07:07 WBC 11.8 H 8.4 (4.3-11.1) K/mcL Hgb 13.8 11.8 D (11.5-15.4) g/dL Hct 40.9 35.5 (35.3-44.9) % Plt Count 218 145 (140-400) K/mcL Neutrophils # 7.9 4.8 (1.6-8.9) K/mcL BMP 02/15/19 02/16/19 13:58 07:07 Sodium 140 135 L Potassium 4.5 3.0 L D Chloride 102 101 Carbon Dioxide 22 L 24 BUN 40 H 18 Creatinine 0.81 0.43 L Glucose 132 H 96 Calcium 10.5 H 9.1 Cardiac Enzymes 02/15/19 Range/Units 13:58 Troponin I 0.03 (< 0.04) ng/mL Liver Function 02/15/19 Range/Units 13:58 Total Bilirubin 1.0 (0.3-1.0) mg/dL AST 22 (13-39) Units/L ALT 12 (7-52) Units/L Alkaline Phosphatase 66 (34-104) Units/L Albumin 4.9 (3.5-5.7) g/dL Urine 02/15/19 Range/Units 15:35 Urine Color Yellow (Yellow) Urine Clarity Clear (Clear) Urine pH 6.5 (5.0-8.0) pH Units Ur Specific [place] 1.028 H (1.010-1.025) Urine Protein Negative (Neg-Trace) mg/dL Urine Glucose (UA) Normal (Normal) mg/dL - ABG Interpretation ABG results: PT/INR, D-dimer PT 12.5 Seconds (9.4-12.1) H 02/15/19 13:58 - Impressions Impressions Angiography CT 02/15/19 13:54 IMPRESSION: Status post bilateral frontotemporal craniotomies, with multiple aneurysm clips in the regions of the bilateral ICA terminus and bilateral MCA bifurcations, in the regions of the anterior communicating artery and the basilar tip. Artifacts related to the aneurysm clips, limiting the evaluation of the adjacent structures. 3 x 3.5 x 4.6 mm saccular aneurysm at the right MCA bifurcation with apex directed superiorly. 3.5 x 2.7 x 3.3 mm saccular aneurysm at the origin of right posterior communicating artery with apex directed posterior inferiorly. No flow limiting stenosis of the major arteries of the head. Encephalomalacia in the bilateral anterior temporal lobes, bilateral inferior frontal lobes and anterior aspects of the bilateral insula cortex, likely related to postoperative changes and/or old infarctions. No acute intracranial abnormality. The results were sent to radiology results communication. D/ / Kodak Fernandez MD / Kodak Fernandez MD Interpreting Provider: Kodak Fernandez MD Chest X-Ray 02/15/19 13:54 IMPRESSION: No evidence for acute cardiopulmonary process. D/ / Rocael Cisse MD / Rocael Cisse MD Interpreting Provider: Rocael Cisse MD Consult Discharge Plan - Plan Referrals: NONE,PCP [Primary Care Provider] - (3) Malnutrition Qualifiers: Malnutrition type: protein-calorie malnutrition Protein-calorie malnutrition severity: moderate Qualified Code(s): E44.0 - Moderate protein-calorie malnutrition
[2019-02-16] MEDS: Cholecalciferol (D-3) 1,000 UNIT TABLET PO SCH (09:47)
[2019-02-16] MEDS: amLODIPine 5 MG TABLET PO SCH (09:48)
[2019-02-16] MEDS: Potassium Chloride Elixir 20 MEQ/15 ML UDC PO SCH (09:49)
--- NOTE | 2019-02-16 10:15 | Electrocardiograph Report ---
[facility] Test Date: 2019-02-15 Pat Name: Aditi Cochran Department: [id number] Room: 2NE33 Gender: F Subscription Crew Leader: : [id number] Requested By: Tobin Up Order Number: [id number] Reading MD: Dennis Garcia Measurements Intervals [place] Rate: 57 P: 54 [place]: 120 QRS: 81 QRSD: 95 T: -3 QT: 452 QTc: 441 Interpretive Statements Sinus rhythm Borderline right axis deviation Borderline T abnormalities, anterior leads Electronically Signed On 02-16-2019 10:13:14 EDT by Dennis Garcia
--- NOTE | 2019-02-16 10:16 | Neurology - Consult Note ---
<Esperanza Pérez - Last Filed: 02/16/19 11:34> Date of Encounter: 02/16/19 Time of Encounter: 09:49 Assessment and Plan (1) Encephalopathy acute Current Visit: Yes Status: Acute 68-year-old female with past medical history of sacular aneurysms-clipped and multiple craniotomies presented due to altered mental status. There is no family at bedside to cooperate history. Patient had reportedly been verbally abusive, combative, n/v headache for the past few days. -Urinalysis, toxicology screen unremarkable. -Lumbar puncture with CSF studies was unremarkable not showing infection or xanthochromia. -Chest x-ray was unremarkable for acute cardiopulmonary process. -Head angiography CT demonstrating status post bilateral frontotemporal cr aniotomy is with multiple aneurysm clips, encephalomalcia in the bilateral anterior temporal lobes, bilateral inferior and anterior temporal lobes, bilateral inferior frontal lobes and aspects of the bilateral insula cortex likely related to postop changes. No acute intracranial abnormality. 3 x 3.5 x 4.6 mm secular aneurysm at the right MCA bifurcation with apex directed superiorly. 3.5 x 2.6 .3 .3 mm secular aneurysm at the origin of right posterior communicating artery with apex directed posterior inferiorly. Recommendation: Angiography CT of head and lumbar puncture CSF were negative for acute infarction or acute hemorrhage. This appears to be more of a psychiatric issue. Recommend that the patient have a psychiatry consult evaluation. Will sign off at this time. (2) History of cerebral aneurysm repair Current Visit: Yes Status: Acute Patient has a history of multiple aneurysms that are s/p clipped. History of Present Illness Chief complaint: Altered mental status HPI: Ms. Cochran is a 68 year old female with a past medical history of bilateral frontotemporal craniotomy is, multiple aneurysm clippings done with resultant encephalomalacia and persistent sacular aneurysms who presented to [facility] due to altered mental status on 02/15/2019. Neurology was consulted on 02/15/2019 for altered mental status. Upon my examination of the patient she is confused but oriented to person in place. She goes on tangents about different conversations and theme songs. She is refusing to answer some questions and did not once me to examine her further or ask any questions. There is staff at the bedside but no family at the bedside. Most of history is taken for medical records. Apparently for the past few days the patient had been verbally abusive, combative, nausea, vomiting, poor oral intake, photophobia. They were concerned of ruptured aneurysm. The staff informed that she has been physically combative during some physical assessments. The patient stated that she is nauseated. She stated her family told her it has been gone for 4 days. She stated she may have had a mild headache but no longer does. She denies hitting her head. She has blurry vision when looking into the light. When asked about fever, chills, dysphasia, ataxia, weakness, sensation change, fall she refuses to answer and stated that she cannot remember and stated I need to ask her . Cannot complete physical exam due to patient refusal. In the ED the patient was hemodynamically stable sinus bradycardia in the 50s. Due to her altered mental status she was given IV ketamine and intramuscular olanzapine. Urinalysis, toxicology screen unremarkable. Lumbar puncture with CSF studies was unremarkable not showing infection or xanthochromia. Chest x- ray was unremarkable for acute cardiopulmonary process. -Head angiography CT demonstrating status post bilateral frontotemporal craniotomy is with multiple aneurysm clips, encephalomalcia in the bilateral anterior temporal lobes, bilateral inferior and anterior temporal lobes, bilateral inferior frontal lobes and aspects of the bilateral insula cortex likely related to postop changes. No acute intracranial abnormality. 3 x 3.5 x 4.6 mm secular aneurysm at the right MCA bifurcation with apex directed superiorly. 3.5 x 2.6 .3 .3 mm secular aneurysm at the origin of right posterior communicating artery with apex directed posterior inferiorly. Past Med Surg Social Fam HX - Past Medical History Source: old records reviewed Medical history: other Additional medical history: brain cysts - Past Surgical History Surgical History: other Additional surgical history: Per H & P Report - craniotomies with aneurysm clippings, per ER Physician report "cerebral aneurysm x 13, 12 of which have been coiled". - Social History Smoking Status: Current every day smoker Alcohol use: none Drug use: marijuana - Family History Mother Age at : 71 Cause of : many brain aneuyrsm Hx Family Cardiac Disorders: Yes (htn) Medications and Allergies Baclofen [Lioresal] 10 mg PO TID 02/15/19 [History] Brimonidine 0.2% [Alphagan] 1 drop BOTH EYES BID 02/15/19 [History] Buspirone HCl [Buspar] 15 mg PO TID 02/15/19 [History] Carvedilol [Coreg] 3.125 mg PO BIDWM 02/15/19 [History] Cholecalciferol (D-3) [Vitamin D] 2,000 unit PO DAILY 02/15/19 [History] Gabapentin [Neurontin] 600 mg PO TID 02/15/19 [History] OxyCODONE/APAP 10/325 [Percocet 10/325 MG] 1 each PO Q6HR PRN 02/15/19 [History] Potassium Chloride Elixir [Potassium Chloride] 20 meq PO DAILY 02/15/19 [History] Sertraline [Zoloft] 50 mg PO DAILY 02/15/19 [History] amLODIPine [Norvasc] 5 mg PO DAILY 02/15/19 [History] traZODone [TraZODone] 100 mg PO HS 02/15/19 [History] Allergy/AdvReac Type Severity Reaction Status Date / Time No Known Allergies Allergy Verified 02/15/19 18:36 ROS unobtainable: due to mental status All Systems: The remainder of the systems were reviewed and are negative Physical Examination - Vital Signs Vital Signs: Initial Vital Signs Temp Pulse Resp BP Pulse Ox 98.4 F 67 17 121/80 99 02/15/19 13:47 02/15/19 13:47 02/15/19 13:47 02/15/19 13:47 02/15/19 13:47 - Exam Exam: Cardiac: RRR, no murmor *cannot perform full neurologic exam due to patient refusal and combativeness. - Constitutional General appearance: chronically ill, older than stated age - Neurologic Mental Status Examination: awake, alert, oriented to person, no aphasia, does n ot follow commands, makes eye contact, inattentive, rambling, not reliable historian Results - Laboratory Findings CBC and BMP: 02/16/19 07:07 02/16/19 07:07 Abnormal lab findings: Abnormal lab results RBC 3.80 M/mcL (3.82-4.97) L 02/16/19 07:07 ESR 24 mm/hr (0-15) H 02/15/19 13:58 PT 12.5 Seconds (9.4-12.1) H 02/15/19 13:58 Sodium 135 mEq/L (136-145) L 02/16/19 07:07 Potassium 3.0 mEq/L (3.5-5.1) L D 02/16/19 07:07 Creatinine 0.43 mg/dL (0.60-1.20) L 02/16/19 07:07 BUN/Creatinine Ratio 42 (6-26) H 02/16/19 07:07 TSH 0.146 mcIU/mL (0.340-5.600) L 02/15/19 13:58 Total T3 0.50 ng/mL (0.87-1.78) L 02/16/19 07:07 Ur Specific [place] 1.028 (1.010-1.025) H 02/15/19 15:35 Urine Ketones 15 mg/dL (Negative) H 02/15/19 15:35 Urine Blood Trace (Negative) H 02/15/19 15:35 Ur Squamous Epith Cells Many per lpf (None-Few) H 02/15/19 15:35 CSF Glucose 72 mg/dL (40-70) H 02/15/19 16:48 Salicylates < 2.5 mg/dL (15.0-30.0) L 02/15/19 13:58 Acetaminophen < 10 mcg/mL (10-20) L 02/15/19 13:58 Consult Discharge Plan - Plan Referrals: NONE,PCP [Primary Care Provider] - <Guillermo Walker I - Last Filed: 02/16/19 16:23> Date of Encounter: 02/16/19 Assessment and Plan (1) Altered mental state Current Visit: Yes Status: Acute Pt was seen and examined, my medical decision was reviewed with the Resident Physician, I agree with the documented findings, disposition and treatment plan, as described except to the extent set forth below This patient was been admitted with the agitation delirious state limited neurological examination as patient would not allow to be examined but overall she is alert awake and oriented to person and place, able to follow simple directions. No significant confusion noted now She is able to move all 4 extremities equally without any focal motor deficit. Patient already had a CT angiogram that shows multiple aneurysmal clipping without any evidence of bleed. CSF analysis also negative for any bleed as well as negative for any COMPOUND SPECIALIST infection. Her symptoms seems to be more off psychiatric nature than anything else. Strongly recommend psych evaluation, she would likely need inpatient hospitalization Also check for other metabolic abnormalities that may be contributing to her symptoms Guillermo Walker MD Qualifiers: Altered mental status type: unspecified (2) History of cerebral aneurysm repair Current Visit: Yes Status: Acute CT angiogram did not show any evidence of bleed, no evidence of any bleed on CSF analysis Stable from neurology standpoint Guillermo Walker MD History of Present Illness HPI: Ms. Cochran is a 68 year old female All Systems: The remainder of the systems were reviewed and are negative Physical Examination - Vital Signs Vital Signs: Initial Vital Signs Temp Pulse Resp BP Pulse Ox 98.4 F 67 17 121/80 99 02/15/19 13:47 02/15/19 13:47 02/15/19 13:47 02/15/19 13:47 02/15/19 13:47 Results - Laboratory Findings CBC and BMP: 02/16/19 07:07 02/16/19 07:07 Abnormal lab findings: Abnormal lab results RBC 3.80 M/mcL (3.82-4.97) L 02/16/19 07:07 ESR 24 mm/hr (0-15) H 02/15/19 13:58 PT 12.5 Seconds (9.4-12.1) H 02/15/19 13:58 Sodium 135 mEq/L (136-145) L 02/16/19 07:07 Potassium 3.0 mEq/L (3.5-5.1) L D 02/16/19 07:07 Creatinine 0.43 mg/dL (0.60-1.20) L 02/16/19 07:07 BUN/Creatinine Ratio 42 (6-26) H 02/16/19 07:07 TSH 0.146 mcIU/mL (0.340-5.600) L 02/15/19 13:58 Total T3 0.50 ng/mL (0.87-1.78) L 02/16/19 07:07 Ur Specific [place] 1.028 (1.010-1.025) H 02/15/19 15:35 Urine Ketones 15 mg/dL (Negative) H 02/15/19 15:35 Urine Blood Trace (Negative) H 02/15/19 15:35 Ur Squamous Epith Cells Many per lpf (None-Few) H 02/15/19 15:35 CSF Glucose 72 mg/dL (40-70) H 02/15/19 16:48 Salicylates < 2.5 mg/dL (15.0-30.0) L 02/15/19 13:58 Acetaminophen < 10 mcg/mL (10-20) L 02/15/19 13:58
[2019-02-16] MEDS ORDERED: Isovue-370 500 ML BOTTLE IVP ONE (15:15)
[2019-02-16] MEDS: *HR* OxyCODONE/APAP 10/325 TABLET PO PRN (16:35)
--- NOTE | 2019-02-16 21:07 | Electrocardiograph Report ---
[address] [place] [address] Test Date: 2019-02-16 Pat Name: Aditi Cochran Department: 111 Room: 2NE33 Gender: F [employer]visor [employer]: GRANT : 1950 Requested By: Bree Higgins Order Number: [id number] Reading MD: Wanda De Leon Measurements Intervals [place] Rate: 60 P: 49 IL: 101 QRS: 54 QRSD: 94 T: -11 QT: 431 QTc: 431 Interpretive Statements SINUS RHYTHM WITH SHORT [place] INTERVAL MODERATE T-WAVE ABNORMALITY, CONSIDER ANTEROLATERAL ISCHEMIA Electronically Signed On 02-16-2019 21:05:54 EDT by Wanda De Leon
[2019-02-17] MEDS: Cholecalciferol (D-3) 1,000 UNIT TABLET PO SCH (08:25)
[2019-02-17] MEDS: amLODIPine 5 MG TABLET PO SCH (08:25)
[2019-02-17] MEDS: Potassium Chloride Elixir 20 MEQ/15 ML UDC PO SCH (08:26)
[2019-02-17 08:49] LABS: Basophils # 0.1 K/mcL (0.0-0.2); Basophils % 0.6 %; Eosinophils # 0.1 K/mcL (0.0-0.6); Eosinophils % 0.7 %; Hematocrit 41.4 % (35.3-44.9); Hemoglobin 14.3 g/dL (11.5-15.4); Immature Granulocytes % 0.5 % (0-4); Lymphocytes # 2.2 K/mcL (0.6-4.6); Lymphocytes % 21.2 %; Mean Corpuscular HGB Conc 34.5 g/dL (31.6-35.5); Mean Corpuscular Hemoglobin 31.2 pg (28.0-33.3); Mean Corpuscular Volume 90.4 fL (83.0-100.0); Mean Platelet Volume 9.7 fL (9.4-12.4); Monocytes % 9.1 %; Neutrophils # 7.2 K/mcL (1.6-8.9); Platelet Count 190 K/mcL (140-400); Red Blood Count 4.58 M/mcL (3.82-4.97); Red Cell Distribution Width 12.6 % (11.5-14.5); Segmented Neutrophils % 67.9 %
[2019-02-17 09:05] LABS: BUN/Creatinine Ratio 40 (6-26); Blood Urea Nitrogen 21 mg/dL (8-23); Calcium 10.2 mg/dL (8.6-10.3); Carbon Dioxide 25 mEq/L (23-29); Chloride 98 mEq/L (98-107); Glucose 99 mg/dL (70-105); Magnesium 1.8 mg/dL (1.6-2.6); Osmolality,Calculated 287 (280-300); Phosphorous 3.2 mg/dL (2.7-4.5); Potassium 3.2 mEq/L (3.5-5.1); Sodium 137 mEq/L (136-145); eGFR For Non-African Americans > 60 (> 60)
--- NOTE | 2019-02-17 09:18 | Neurology Progress Note ---
<Esperanza Pérez - Last Filed: 02/17/19 11:18> Date of Encounter: 02/17/19 Time of Encounter: 09:17 Assessment and Plan (1) Encephalopathy acute Current Visit: Yes Status: Acute 68-year-old female with past medical history of sacular aneurysms-clipped and multiple craniotomies presented due to altered mental status. There is no family at bedside to cooperate history. Patient had reportedly been verbally abusive, combative, n/v headache for the past few days. -Suspect that this is psychiatric nature or metabolic -Urinalysis, toxicology screen unremarkable. -Lumbar puncture with CSF studies was unremarkable not showing infection or xa nthochromia. -Chest x-ray was unremarkable for acute cardiopulmonary process. -Head angiography CT demonstrating status post bilateral frontotemporal craniotomy is with multiple aneurysm clips, encephalomalcia in the bilateral anterior temporal lobes, bilateral inferior and anterior temporal lobes, bilateral inferior frontal lobes and aspects of the bilateral insula cortex likely related to postop changes. No acute intracranial abnormality. 3 x 3.5 x 4.6 mm secular aneurysm at the right MCA bifurcation with apex directed superiorly. 3.5 x 2.6 .3 .3 mm secular aneurysm at the origin of right posterior communicating artery with apex directed posterior inferiorly. Recommendation: Angiography CT of head and lumbar puncture CSF were negative for acute infarction or acute hemorrhage. This appears to be more of a psychiatric or metabolic. Strongly suggest a psychiatry consult evaluation. Psychiatry was present in room prior to my examination. Patient was cooperative today and non-combative. Neurologic exam was able to be performed today and was non-focal for deficits (see physical exam for more detail). (2) History of cerebral aneurysm repair Current Visit: Yes Status: Acute Patient has a history of multiple aneurysms that are s/p clipped. Subjective Principal diagnosis: Altered mental status Interval history: Patient seen and examined at bedside. She is alert and oriented to person and place. She denies headache, fever, chills. She does still have blurry vision. She also reports abdominal pain that she thinks is chronic and due to constipation. She is still slightly confused but not combative today and is more cooperative. Objective - Constitutional Vitals: Temp Pulse Resp BP Pulse Ox 98.0 F 72 16 159/99 98 02/17/19 05:36 02/17/19 07:26 02/17/19 05:36 02/17/19 07:26 02/17/19 07:26 Exam: Examination: General Examination: *CONSTITUTIONAL: alert and oriented x2 No acute distress *GENERAL APPEARANCE OF PATIENT elderly female, appropriate hygiene *EYES: pupils equal, round, reactive to light and accommodation, conjunctiva clear Musculoskeletal: *GAIT AND STATION not assessed *ASSESSMENT OF MUSCLE STRENGTH IN THE UPPER AND LOWER EXTREMITIES bilateral deltoid, bicep, tricep, automated logistics specialist strength, hip flexors ,anterior tibialis, dorsoflexion of the foot 5/5 *MUSCLE TONE IN THE UPPER AND LOWER EXTREMITIES normal. No abnormal movements, fasciculations. Diffuse atrophy identified. Neurological: *ORIENTATION to person and place *RECURRENT AND REMOTE MEMORY intact *ATTENTION AND CONCENTRATION are normal *LANGUAGE FUNCTION no significant aphasia or dysarthia was noted. *FUND OF KNOWLEDGE poor comprehension of current medical situation *MENTAL attention span and concentration normal. *CN II optic fundi not assessed *CN III,IV, PERRLA extraocular eye movements were full, no nystagmus and no ptosis noted. *CN V shows normal sensation and jaw opens symmetrically. *CN VII shows normal facial movement symmetrically, upper and lower bilaterally. *CN VIII shows no significant hearing loss on exam *CN IX,,X palate elevated symmetrically *CN XI normal strength in the sternocleidomastoid muscles, symmetrical shoulder shrugging. *CN XII tongue protruded in the midline, with normal strength and movement. *SENSORY EXAMINATION and light touch(vibration sense). *REFLEXES: deep tendon reflexes were normal and symmetrical , grade 2/4 diffusely, no pathological reflexes were noted. *CEREBELLAR TESTING normal finger to nose, minimal left pronator drift *PAIN LEVEL 0 - Neurological Exam Mental Status Examination: Present: awake, alert, oriented to person, no aphasia, does not follow commands, makes eye contact, inattentive, rambling, not reliable historian Results - Laboratory Findings CBC and BMP: 02/17/19 08:30 02/17/19 08:30 Abnormal lab findings: Abnormal lab results RBC 3.80 M/mcL (3.82-4.97) L 02/16/19 07:07 ESR 24 mm/hr (0-15) H 02/15/19 13:58 PT 12.5 Seconds (9.4-12.1) H 02/15/19 13:58 Potassium 3.2 mEq/L (3.5-5.1) L 02/17/19 08:30 Creatinine 0.53 mg/dL (0.60-1.20) L 02/17/19 08:30 BUN/Creatinine Ratio 40 (6-26) H 02/17/19 08:30 TSH 0.146 mcIU/mL (0.340-5.600) L 02/15/19 13:58 Total T3 0.50 ng/mL (0.87-1.78) L 02/16/19 07:07 Ur Specific [place] 1.028 (1.010-1.025) H 02/15/19 15:35 Urine Ketones 15 mg/dL (Negative) H 02/15/19 15:35 Urine Blood Trace (Negative) H 02/15/19 15:35 Ur Squamous Epith Cells Many per lpf (None-Few) H 02/15/19 15:35 CSF Glucose 72 mg/dL (40-70) H 02/15/19 16:48 Salicylates < 2.5 mg/dL (15.0-30.0) L 02/15/19 13:58 Acetaminophen < 10 mcg/mL (10-20) L 02/15/19 13:58 Consult Discharge Plan - Plan Referrals: NONE,PCP [Primary Care Provider] - <Guillermo Walker I - Last Filed: 02/17/19 11:59> Date of Encounter: 02/17/19 Assessment and Plan (1) Altered mental state Current Visit: Yes Status: Acute Qualifiers: Altered mental status type: unspecified (2) History of cerebral aneurysm repair Current Visit: Yes Status: Chronic (3) Encephalopathy acute Current Visit: Yes Status: Acute Pt was seen and examined, my medical decision was reviewed with the Resident Physician, I agree with the documented findings, disposition and treatment plan, as described except to the extent set forth below. Should not is more alert awake oriented than yesterday not as agitated and belligerent as she was yesterday. No evidence of any bleed on CT scan No evidence of any SUCTION WORKER infection Recommend psych Evaluation for further workup of patient abnormal mood and affect and aggressive behavior From neurology standpoint patient is a stable We will sign off call if needed Guillermo Walker MD Objective - Constitutional Vitals: Temp Pulse Resp BP Pulse Ox 98.0 F 83 16 139/98 96 02/17/19 05:36 02/17/19 10:51 02/17/19 05:36 02/17/19 10:51 02/17/19 10:51 Results - Laboratory Findings CBC and BMP: 02/17/19 08:30 02/17/19 08:30 Abnormal lab findings: Abnormal lab results ESR 24 mm/hr (0-15) H 02/15/19 13:58 PT 12.5 Seconds (9.4-12.1) H 02/15/19 13:58 Potassium 3.2 mEq/L (3.5-5.1) L 02/17/19 08:30 Creatinine 0.53 mg/dL (0.60-1.20) L 02/17/19 08:30 BUN/Creatinine Ratio 40 (6-26) H 02/17/19 08:30 TSH 0.146 mcIU/mL (0.340-5.600) L 02/15/19 13:58 Total T3 0.50 ng/mL (0.87-1.78) L 02/16/19 07:07 Ur Specific [place] 1.028 (1.010-1.025) H 02/15/19 15:35 Urine Ketones 15 mg/dL (Negative) H 02/15/19 15:35 Urine Blood Trace (Negative) H 02/15/19 15:35 Ur Squamous Epith Cells Many per lpf (None-Few) H 02/15/19 15:35 CSF Glucose 72 mg/dL (40-70) H 02/15/19 16:48 Salicylates < 2.5 mg/dL (15.0-30.0) L 02/15/19 13:58 Acetaminophen < 10 mcg/mL (10-20) L 02/15/19 13:58
--- NOTE | 2019-02-17 11:41 | Internal Med Progress Note ---
Hospitalist Progress Note - Encounter Date of Encounter: 02/17/19 Time of Encounter: 11:39 - Subjective Interval History: Patient seen and examined at bedside. Resting in bed and refusing to get out of bed. As per nursing report, patient's mental status has significantly improved compared to previous day, the patient is more cooperative. Patient is currently alert oriented 3. Patient was noted to be hypertensive this morning, however the blood pressure is within acceptable range. Neurology evaluation has been noted and psychiatric evaluation is recommended Awaiting official psychiatric consultation report If remains clinically asymptomatic, tentative discharge in a.m. - Exam Vitals: Temp Pulse Resp BP Pulse Ox 98.0 F 83 16 139/98 96 02/17/19 05:36 02/17/19 10:51 02/17/19 05:36 02/17/19 10:51 02/17/19 10:51 Exam: Gen.: No acute distress, alert and oriented 3 HEENT: Mucosal membranes moist, no scleral icterus, EOMI Respiratory: Lungs are clear to auscultation bilaterally without any wheezing rhonchi or rales Cardiovascular: Normal S1 and S2 regular rate rhythm no murmurs rubs or gallops Abdomen: Soft, nontender and nondistended with normal bowel sounds Extremities: No lower extremity edema Neuro: AAO x 3, no focal deficit - Assessment and Plan (1) Encephalopathy acute Current Visit: Yes Status: Acute Assessment and Plan: Acute change in mental status of unclear etiology Mental status appears to be back to baseline Neurology on board and evaluation appreciated Psychiatric evaluation requested as per neurology (2) History of cerebral aneurysm repair Current Visit: Yes Status: Chronic Assessment and Plan: Appears to be stable based on CT. Will continue to monitor neurologic status. Neurology on board and evaluation appreciated (3) Malnutrition Current Visit: Yes Status: Chronic Assessment and Plan: BMI of 17.6 Nutrition consulted and appreciate recommendations (4) Low TSH level Current Visit: Yes Status: Chronic Assessment and Plan: Thyroid panel noted Outpatient follow-up with PCP for close monitoring and initiation of thyroid supplementation therapy Mental status back to baseline (5) Hypokalemia Current Visit: Yes Status: Acute Assessment and Plan: Potassium supplemented Continue to monitor electrolytes and replace as needed DVT Prophylaxis: SCDs - Time Spent with Patient Total time spent is greater than 50% in coordination of care (as documented) at patient's floor/unit and/or counseling patient: 25 - 35 minutes Plan of Care Discussed with: patient (Patient/RN) Internal Medicine: Result - Labs CBC & Chem 7: 02/17/19 08:30 02/17/19 08:30 Labs: Short CBC 02/17/19 Range/Units 08:30 WBC 10.5 (4.3-11.1) K/mcL Hgb 14.3 D (11.5-15.4) g/dL Hct 41.4 (35.3-44.9) % Plt Count 190 (140-400) K/mcL Neutrophils # 7.2 (1.6-8.9) K/mcL BMP 02/17/19 08:30 Sodium 137 Potassium 3.2 L Chloride 98 Carbon Dioxide 25 BUN 21 Creatinine 0.53 L Glucose 99 Calcium 10.2 - ABG Interpretation ABG results: PT/INR, D-dimer PT 12.5 Seconds (9.4-12.1) H 02/15/19 13:58 - Impressions Impressions Abdomen/Pelvis CTA 02/16/19 15:15 IMPRESSION: No acute findings are seen to the abdomen or pelvis. No evidence for dissection. Infrarenal abdominal aortic aneurysm measuring maximally 3.5 x 3.4 cm, increased from prior exam by my measurement where it measured 3.2 x 3.3 cm. Reference management guidelines as below. Extensive atherosclerosis to include worsened mural thrombus to the abdominal aorta. Abdominal aorta appears patent. 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 Mild colonic diverticulosis without evidence for diverticulitis. Stable ventral abdominal wall hernia. RECOMMENDATIONS: Managing Abdominal Aortic Aneurysms 3.5-3.9 cm: Every 1 year. Reference: J Vasc Surg. 2009 Aug;50(4 Suppl):S2-49 D/ : / 02/16/2019 16:37:50 Rocael Cisse MD / joo Interpreting Provider: Rocael Cisse MD Consult Discharge Plan - Plan Referrals: NONE,PCP [Primary Care Provider] - (3) Malnutrition Qualifiers: Malnutrition type: protein-calorie malnutrition Protein-calorie malnutrition severity: moderate Qualified Code(s): E44.0 - Moderate protein-calorie malnutrition
--- NOTE | 2019-02-17 14:48 | Consult Note ---
Date of Encounter: 02/17/19 Time of Encounter: 09:10 Assessment & Recommendation (1) Altered mental state Current visit: Yes Status: Acute Assessment & Recommendation: -At this time, due to the several comorbidities she has, including infarcts and aneurysms, a purely psychiatric cause of her illness cannot be confirmed. 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 If patient continues to be cooperative, sitter will likely not be needed -Would recommend an outpatient neuropsychiatric specialist once discharged -Will continue to monitor while inpatient Qualifiers: Altered mental status type: unspecified Qualified Code(s): R41.82 - Altered mental status, unspecified History of Present Illness Patient: new to practice Requesting Physician: Waleska Reyna MD Reason for consult: Altered mental status History of present illness: Ms. Cochran is a 68 year old female with no significant past psychiatric his tory to note but a history of frontotemporal bilateral craniotomies with several cerebral aneurysms who was admitted on 02/15/2019 and he was consulted today for altered mental status. Reports state that has been called the ambulance, reporting that patient has had altered mental status for several days. They report increased confusion and verbal combativeness. They also reports that she has not been eating for one week. They did note a correlation with the start of baclofen, stating that this all started 3-4 days after the initiation of this medication. Reports state patient has a history of 13 cerebral aneurysms in her life. Reports state that she needed ketamine and olanzapine in the emergency department. Neurology saw this patient and does not feel the patient has a neurological process causing the altered mental status at this time. When seeing the patient, she reports that she is "a lot better." When asked why she was better, she reports that her daughter's was a cpr ambulance driver in that she is unable to see him race because she cannot handle the noise. She continues to be tangential throughout the conversation. She showed disinhibition, exposing her lower abdomen and genital region to this provider to report that the nursing staff at the cardiac monitors on her. She did not cover up after explaining this information. She denied suicidality today, after saying so she reports that, I do not want to hear anything about chicken or turkey." She then reported about how you have to gut a turkey" that process disgusted her. However, she was alert and oriented to self, hospital, city, and president. She did not know the name of the hospital but knew to look up on the white board for both the name of the hospital and the date. She denies depression and anxiety today. She denies issues with sleep and appetite. She denies HI, AH, and VH. Patient also explains that she has had chronic aneurysms and that her mother's side of the family also have these. CC: Waleska Reyna MD Past Med Surg Social Fam HX - Past Medical History Source: patient Medical history: other (Cerebral Aneurysms) - Past Psychiatric History Psychiatric history: Reports: no psych history Family psychiatric history: Unknown Family History of Suicide: Unknown - Past Surgical History Surgical History: other (Stent placement for cerebral aneurysms) - Social History Smoking Status: Current every day smoker Alcohol use: none Drug use: marijuana Occupational status: other Current living situation: Other Activity Level: Other - Family History Mother Age at : 71 Cause of : many brain aneuyrsm Hx Family Cardiac Disorders: Yes (htn) Medications & Allergies Baclofen [Lioresal] 10 mg PO TID 02/15/19 [History] Brimonidine 0.2% [Alphagan] 1 drop BOTH EYES BID 02/15/19 [History] Buspirone HCl [Buspar] 15 mg PO TID 02/15/19 [History] Carvedilol [Coreg] 3.125 mg PO BIDWM 02/15/19 [History] Cholecalciferol (D-3) [Vitamin D] 2,000 unit PO DAILY 02/15/19 [History] Gabapentin [Neurontin] 600 mg PO TID 02/15/19 [History] OxyCODONE/APAP 10/325 [Percocet 10/325 MG] 1 each PO Q6HR PRN 02/15/19 [History] RX: Potassium Chloride Elixir [Potassium Chloride] 20 meq PO DAILY 02/15/19 [History] RX: traZODone [TraZODone] 100 mg PO HS 02/15/19 [History] Sertraline [Zoloft] 50 mg PO DAILY 02/15/19 [History] amLODIPine [Norvasc] 5 mg PO DAILY 02/15/19 [History] Allergy/AdvReac Type Severity Reaction Status Date / Time No Known Allergies Allergy Verified 02/15/19 18:36 Review of Systems Neurological: Reports: confusion Psychiatric: Reports: confusion, difficulty concentrating. Denies: depression, anxiety, abnormal sleep pattern, suicidal ideation, change in appetite, homicidal ideation, auditory hallucinations, visual hallucinations Psychiatry Exam - Constitutional Vitals: Temp Pulse Resp BP Pulse Ox 98.0 F 83 16 139/98 96 02/17/19 05:36 02/17/19 10:51 02/17/19 05:36 02/17/19 10:51 02/17/19 10:51 General appearance: age & developmentally appropriate, well-groomed, well- nourished, average Additional observations: Exposed herself to this provider times - Musculoskeletal Gait: other (Not assessed) Station: relaxed Strength & Tone: normal for patient (Grossly) - Psychiatric Patient Orientation: Yes Person, No Time, Yes Place (New she was at Hospital and in [facility] but did not know the name of the hospital), Yes Circumstance Level of alertness: Alert, Follows commands Behavior: calm, cooperative Psychomotor activity: Normal Eye Contact: Maintains Eye Contact Mood Description: Euthymic/stable Patient description of mood: "A lot better" Affect description: congruent with mood, full range Speech Volume: Normal Speech pattern: normal rate, normal rhythm, normal tone, fluent, spontaneous Language & Vocabulary: consistent with education Thought Process: Tangential Thought Content: No Suicidal ideation, No Homicidal ideation, No Overt delusions Perceptual Disturbances: No Reacting to internal stimuli, No Auditory hallucinations, No Visual hallucinations Attention Span Ability: Capable of Focused Attention Memory Description: Grossly Intact Patient Reliability: Questionable Historian Fund of knowledge: Yes abstraction ability, Yes aware of current events Intelligence Estimate: Average Judgment: Limited Insight: Minimal Results - Drug Levels and Toxicology Drug Levels and Toxicology: None noted this a.m. - Labs Labs: Laboratory Last Values WBC 10.5 K/mcL (4.3-11.1) 02/17/19 08:30 RBC 4.58 M/mcL (3.82-4.97) 02/17/19 08:30 Hgb 14.3 g/dL (11.5-15.4) D 02/17/19 08:30 Hct 41.4 % (35.3-44.9) 02/17/19 08:30 MCV 90.4 fL (83.0-100.0) 02/17/19 08:30 MCH 31.2 pg (28.0-33.3) 02/17/19 08:30 MCHC 34.5 g/dL (31.6-35.5) 02/17/19 08:30 RDW 12.6 % (11.5-14.5) 02/17/19 08:30 Plt Count 190 K/mcL (140-400) 02/17/19 08:30 MPV 9.7 fL (9.4-12.4) 02/17/19 08:30 Immature Gran % 0.5 % (0-4) 02/17/19 08:30 Seg Neutrophils % 67.9 % 02/17/19 08:30 Lymphocytes % 21.2 % 02/17/19 08:30 Monocytes % 9.1 % 02/17/19 08:30 Eosinophils % 0.7 % 02/17/19 08:30 Basophils % 0.6 % 02/17/19 08:30 Neutrophils # 7.2 K/mcL (1.6-8.9) 02/17/19 08:30 Lymphocytes # 2.2 K/mcL (0.6-4.6) 02/17/19 08:30 Monocytes # 1.0 K/mcL (0.0-1.3) 02/17/19 08:30 Eosinophils # 0.1 K/mcL (0.0-0.6) 02/17/19 08:30 Basophils # 0.1 K/mcL (0.0-0.2) 02/17/19 08:30 ESR 24 mm/hr (0-15) H 02/15/19 13:58 PT 12.5 Seconds (9.4-12.1) H 02/15/19 13:58 INR 1.1 02/15/19 13:58 Sodium 137 mEq/L (136-145) 02/17/19 08:30 Potassium 3.2 mEq/L (3.5-5.1) L 02/17/19 08:30 Chloride 98 mEq/L (98-107) 02/17/19 08:30 Carbon Dioxide 25 mEq/L (23-29) 02/17/19 08:30 BUN 21 mg/dL (8-23) 02/17/19 08:30 Creatinine 0.53 mg/dL (0.60-1.20) L 02/17/19 08:30 Est GFR ( Amer) > 60 (> 60) 02/17/19 08:30 Est GFR (Non-Af Amer) > 60 (> 60) 02/17/19 08:30 BUN/Creatinine Ratio 40 (6-26) H 02/17/19 08:30 Glucose 99 mg/dL (70-105) 02/17/19 08:30 POC Glucose 95 mg/dL (70-99) 02/15/19 14:44 Calculated Osmolality 287 (280-300) 02/17/19 08:30 Lactic Acid 1.7 mmol/L (0.5-2.2) 02/15/19 14:30 Calcium 10.2 mg/dL (8.6-10.3) 02/17/19 08:30 Phosphorus 3.2 mg/dL (2.7-4.5) 02/17/19 08:30 Magnesium 1.8 mg/dL (1.6-2.6) 02/17/19 08:30 Total Bilirubin 1.0 mg/dL (0.3-1.0) 02/15/19 13:58 AST 22 Units/L (13-39) 02/15/19 13:58 ALT 12 Units/L (7-52) 02/15/19 13:58 Alkaline Phosphatase 66 Units/L (34-104) 02/15/19 13:58 Ammonia 42 mcmol/L (16-53) 02/15/19 13:58 Troponin I 0.03 ng/mL (< 0.04) 02/15/19 13:58 C-Reactive Protein < 5 mg/L (Less than 10) 02/15/19 13:58 Serum Total Protein 8.0 g/dL (6.4-8.9) 02/15/19 13:58 Albumin 4.9 g/dL (3.5-5.7) 02/15/19 13:58 Globulin 3.1 g/dL (2.4-3.5) 02/15/19 13:58 Albumin/Globulin Ratio 1.6 (1.1-2.2) 02/15/19 13:58 TSH 0.146 mcIU/mL (0.340-5.600) L 02/15/19 13:58 Free T4 1.07 ng/dl (0.70-2.00) 02/16/19 07:07 Free T3 2.71 pg/mL (2.50-3.90) 02/16/19 07:07 Total T3 0.50 ng/mL (0.87-1.78) L 02/16/19 07:07 Urine Color Yellow (Yellow) 02/15/19 15:35 Urine Clarity Clear (Clear) 02/15/19 15:35 Urine pH 6.5 pH Units (5.0-8.0) 02/15/19 15:35 Ur Specific [place] 1.028 (1.010-1.025) H 02/15/19 15:35 Urine Protein Negative mg/dL (Neg-Trace) 02/15/19 15:35 Urine Glucose (UA) Normal mg/dL (Normal) 02/15/19 15:35 Urine Ketones 15 mg/dL (Negative) H 02/15/19 15:35 Urine Blood Trace (Negative) H 02/15/19 15:35 Urine Nitrite Negative (Negative) 02/15/19 15:35 Urine Bilirubin Negative (Negative) 02/15/19 15:35 Urine Urobilinogen Normal mg/dL (Normal) 02/15/19 15:35 Ur Leukocyte Esterase Negative (Negative) 02/15/19 15:35 Urine Microscopic RBC 0-3 per hpf (0-3) 02/15/19 15:35 Urine Microscopic WBC 0-3 per hpf (0-3) 02/15/19 15:35 Ur Squamous Epith Cells Many per lpf (None-Few) H 02/15/19 15:35 Urine Bacteria None Seen per hpf (None-Few) 02/15/19 15:35 Hyaline Casts None Seen per lpf (None-Few) 02/15/19 15:35 CSF Volume 2.0 mL 02/15/19 16:48 CSF Appearance Clear (Clear) 02/15/19 16:48 CSF Color Colorless (Colorless) 02/15/19 16:48 CSF RBC < 0.002 M/mcL (0.000-0.002) 02/15/19 16:48 CSF Tot Nucleated Cells < 3 TNC/mcL (0-5) 02/15/19 16:48 CSF Glucose 72 mg/dL (40-70) H 02/15/19 16:48 CSF Xanth Comm Not Observed (Not Observe) 02/15/19 16:48 CSF Total Protein 41 mg/dL (15-45) 02/15/19 16:48 Salicylates < 2.5 mg/dL (15.0-30.0) L 02/15/19 13:58 Acetaminophen < 10 mcg/mL (10-20) L 02/15/19 13:58 Ethyl Alcohol < 10 mg/dL (Less than 10) 02/15/19 13:58 - Impressions Impressions Abdomen/Pelvis CTA 02/16/19 15:15 IMPRESSION: No acute findings are seen to the abdomen or pelvis. No evidence for dissection. Infrarenal abdominal aortic aneurysm measuring maximally 3.5 x 3.4 cm, increased from prior exam by my measurement where it measured 3.2 x 3.3 cm. Reference management guidelines as below. Extensive atherosclerosis to include worsened mural thrombus to the abdominal aorta. Abdominal aorta appears patent. 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 Mild colonic diverticulosis without evidence for diverticulitis. Stable ventral abdominal wall hernia. RECOMMENDATIONS: Managing Abdominal Aortic Aneurysms 3.5-3.9 cm: Every 1 year. Reference: J Vasc Surg. 2009 Aug;50(4 Suppl):S2-49 D/ / 02/16/2019 16:37:50 Rocael Cisse MD / joo Interpreting Provider: Rocael Cisse MD Consult Discharge Plan - Plan Referrals: NONE,PCP [Primary Care Provider] - - Attending Attestation I examined this patient and my medical decision-making was reviewed with the Resident Physician. I agree with the documented findings, disposition and treatment plan as described except to the extent set forth below. Unlikely this is a primary psych presentation. At this time no medication changes are recommended.
[2019-02-17] MEDS: *HR* OxyCODONE/APAP 10/325 TABLET PO PRN (20:31)
[2019-02-18] MEDS: *HR* OxyCODONE/APAP 10/325 TABLET PO PRN ×2 (05:46→12:37)
[2019-02-18 07:37] LABS: BUN/Creatinine Ratio 38 (6-26); Blood Urea Nitrogen 24 mg/dL (8-23); Calcium 9.9 mg/dL (8.6-10.3); Carbon Dioxide 26 mEq/L (23-29); Chloride 98 mEq/L (98-107); Glucose 129 mg/dL (70-105); Magnesium 1.7 mg/dL (1.6-2.6); Osmolality,Calculated 286 (280-300); Potassium 3.2 mEq/L (3.5-5.1); Sodium 135 mEq/L (136-145); eGFR For Non-African Americans > 60 (> 60)
[2019-02-18] MEDS ORDERED: Potassium Chloride 20 MEQ, Lidocaine 1% 2 ML in D5% in Water 250 ML IVPB ONE (07:57)
[2019-02-18] MEDS: amLODIPine 5 MG TABLET PO SCH (09:05)
[2019-02-18] MEDS: Cholecalciferol (D-3) 1,000 UNIT TABLET PO SCH (09:07)
[2019-02-18] MEDS: Potassium Chloride Elixir 20 MEQ/15 ML UDC PO SCH (09:07)
[2019-02-18 13:17] VITALS: BP 130/88
--- NOTE | 2019-02-18 14:16 | Physician Discharge Referral ---
Home Health/Hosp Referral Info Transfer to: Home Health Provider in Charge Post Discharge: PCP - Diagnosis (1) Encephalopathy acute Priority: Primary Status: Resolved (2) History of cerebral aneurysm repair Priority: Secondary Status: Chronic (3) Malnutrition Priority: Secondary Status: Chronic (4) Low TSH level Priority: Secondary Status: Chronic (5) Hypokalemia Priority: Secondary Status: Acute - Respiratory Orders Smoking Cessation: Smoking cessation has been advised. For more information, call the [place] Tobacco Quit Line at 3-619-ACKW-NOW. - Services Needed Following services are medically necessary services: Nursing, Home Health Aide - Transfer Medications Home Medications: Baclofen [Lioresal] 10 mg PO TID 02/15/19 [History] Brimonidine 0.2% [Alphagan] 1 drop BOTH EYES BID 02/15/19 [History] Buspirone HCl [Buspar] 15 mg PO TID 02/15/19 [History] Carvedilol [Coreg] 3.125 mg PO BIDWM 02/15/19 [History] Cholecalciferol (D-3) [Vitamin D] 2,000 unit PO DAILY 02/15/19 [History] Gabapentin [Neurontin] 600 mg PO TID 02/15/19 [History] OxyCODONE/APAP 10/325 [Percocet 10/325 MG] 1 each PO Q6HR PRN 02/15/19 [History] Potassium Chloride Elixir [Potassium Chloride] 20 meq PO DAILY 02/15/19 [History] Sertraline [Zoloft] 50 mg PO DAILY 02/15/19 [History] amLODIPine [Norvasc] 5 mg PO DAILY 02/15/19 [History] traZODone [TraZODone] 100 mg PO HS 02/15/19 [History] Allergies/Adverse Reactions: Allergy/AdvReac Type Severity Reaction Status Date / Time No Known Allergies Allergy Verified 02/15/19 18:36 Certification: Further, I certify that my clinical findings support that this patient is homebound (i.e. absences from home require considerable and taxing effort and are for medical reasons or gnosticist services or infrequently or short duration when for other reasons) because: Homebound Reason: Patient requires assistance of a person or device to safely leave home Attestation: My signature below is to certify that this patient is under my care and that I, or nurse practitioner, or a physician's practice assistant working with me, has a [id number] encounter with this patient.
--- NOTE | 2019-02-18 14:28 | Discharge Summary ---
- NOTES TO OUTPATIENT PROVIDER Notes to Outpatient Provider: Please monitor patient's thyroid function tests as outpatient. Please monitor patient's potassium level Orders not resulted at time of discharge: Pending orders 02/15/19 14:30 Culture,Blood [BC] Stat Date of Encounter: 02/18/19 Time of Encounter: 13:15 - Discharge Diagnosis (1) Encephalopathy acute Priority: Primary Status: Resolved (2) History of cerebral aneurysm repair Priority: Secondary Status: Chronic (3) Malnutrition Priority: Secondary Status: Chronic Qualifiers: Malnutrition type: protein-calorie malnutrition Protein-calorie malnutrition severity: moderate Qualified Code(s): E44.0 - Moderate protein- calorie malnutrition (4) Low TSH level Priority: Secondary Status: Chronic Assessment and Plan: outpatient follow up recommended (5) Hypokalemia Priority: Secondary Status: Acute Assessment and Plan: K supplemented prior to discharge Hospital course: Ms. Cochran is a 68 year old female with PMH of bilateral frontotemporal craniotomies with multiple aneurysm clippings done with resultant encephalomalacia who was admitted for acute encephalopathy. Pt's workup was unremarkable for any metabolic insufficiency contributing to her acute encephalopathy. Neurology evaluated the patient and psych evaluation was recommended. Psychiatry recommended outpatient follow up and not inpatient intervention was recommended.Pt is currently back to her baseline mental status. Pt is seen and examined on the day of discharge. As per family, pt is back to her baseline mental status and pt wishes to be discharged to home with continuation of her home health services. Pt and family are both in agreement of pt's discharge plan to home with home health. Pt is medically stable for discharge to home with outpatient follow up with PCP, neurology, and psychiatry. - Time Spent with Patient Total time spent providing and/or coordinating discharge services: Time spent: Greater than 30 minutes - Discharge Medications Prescriptions: Continue Cholecalciferol (D-3) [Vitamin D] 2,000 unit PO DAILY Carvedilol [Coreg] 3.125 mg PO BIDWM amLODIPine [Norvasc] 5 mg PO DAILY Potassium Chloride Elixir [Potassium Chloride] 20 meq PO DAILY OxyCODONE/APAP 10/325 [Percocet 10/325 MG] 1 each PO Q6HR PRN PRN Reason: Pain Gabapentin [Neurontin] 600 mg PO TID Brimonidine 0.2% [Alphagan] 1 drop BOTH EYES BID Baclofen [Lioresal] 10 mg PO TID traZODone [TraZODone] 100 mg PO HS Sertraline [Zoloft] 50 mg PO DAILY Buspirone HCl [Buspar] 15 mg PO TID Home Medications: Baclofen [Lioresal] 10 mg PO TID 02/15/19 [History] Brimonidine 0.2% [Alphagan] 1 drop BOTH EYES BID 02/15/19 [History] Buspirone HCl [Buspar] 15 mg PO TID 02/15/19 [History] Carvedilol [Coreg] 3.125 mg PO BIDWM 02/15/19 [History] Cholecalciferol (D-3) [Vitamin D] 2,000 unit PO DAILY 02/15/19 [History] Gabapentin [Neurontin] 600 mg PO TID 02/15/19 [History] OxyCODONE/APAP 10/325 [Percocet 10/325 MG] 1 each PO Q6HR PRN 02/15/19 [History] Potassium Chloride Elixir [Potassium Chloride] 20 meq PO DAILY 02/15/19 [History] Sertraline [Zoloft] 50 mg PO DAILY 02/15/19 [History] amLODIPine [Norvasc] 5 mg PO DAILY 02/15/19 [History] traZODone [TraZODone] 100 mg PO HS 02/15/19 [History] Allergies/Adverse Reactions: Allergy/AdvReac Type Severity Reaction Status Date / Time No Known Allergies Allergy Verified 02/15/19 18:36 Date of admission: 02/15/19 18:56 Primary care physician: PCP NONE Consults: 02/15/19 18:19 Consult to Neurology [CONS] Stat Consulting Provider: Neurology [facility] Reason for Consult: AMS. requested by admitting hospitalist Dr Hough Time Notified: 18:20 Call Completed: Yes 02/15/19 21:41 Consult to Nutrition [CONS] Routine Comment: Consulting Provider: NUTRITION Reason for Dietary Consult: PO Supplementation 02/16/19 10:42 Consult to Nutrition [CONS] Routine Comment: Consulting Provider: NUTRITION Reason for Dietary Consult: PO Supplementation Consult to Clerk General Office [CONS] Routine Reason for SW Consult: might need some home health or possible ecf. 02/16/19 13:13 Consult to Psychiatry [CONS] Stat Consulting Provider: Psychiatry [facility] Reason consult: Altered mental status Other reason and/or additional details: patient was just started on baclofen last Friday and AMS , psy s/s Call Completed: No 02/17/19 10:28 Consult to Physical Therapy [CONS] Routine Comment: Evaluate, develop and implement POC Reason for Consult: discharge planning Does patient have active BEDREST order?: No Is patient medically & hemodynamically stable?: Yes Discharging clinician: Waleska Reyna Anticipated date of discharge: 02/18/19 - Constitutional Vitals: Temp Pulse Resp BP Pulse Ox 98.4 F 86 16 130/88 98 02/18/19 06:38 02/18/19 06:38 02/18/19 06:38 02/18/19 13:16 02/18/19 06:38 Exam: Gen.: No acute distress, alert and oriented 3 HEENT: Mucosal membranes moist, no scleral icterus, EOMI Respiratory: Lungs are clear to auscultation bilaterally without any wheezing rhonchi or rales Cardiovascular: Normal S1 and S2 regular rate rhythm no murmurs rubs or gallops Abdomen: Soft, nontender and nondistended with normal bowel sounds Extremities: No lower extremity edema Neuro: AAO x 3, no focal deficit - Patient Status Disposition: Home Health Service Condition: Fair Functional capacity at discharge: independent ambulation Overall status at discharge: patient is back to baseline - Discharge Instructions Follow Up With: Shivani Anderson [Resident] - 02/19/19 11:05 am Jin Santa MD [Partnered Physician] - 03/03/19 1:00 pm Guillermo Walker MD [Partnered Physician] - 03/03/19 7:30 am Additional Instructions: 1. Please follow up with your PCP, Neurologist, and Psychiatrist within one week after your discharge from the hospital. 2. Please resume all your home medications as prescribed by your primary care physician. - Diet and Activity Diet: advance to your usual diet
--- NOTE | 2019-02-18 15:06 | Physician Discharge Referral ---
Home Health/Hosp Referral Info Transfer to: Home Health Provider in Charge Post Discharge: PCP - Diagnosis (1) Encephalopathy acute Priority: Primary Status: Resolved (2) History of cerebral aneurysm repair Priority: Secondary Status: Chronic (3) Malnutrition Priority: Secondary Status: Chronic (4) Low TSH level Priority: Secondary Status: Chronic (5) Hypokalemia Priority: Secondary Status: Resolved - Respiratory Orders Smoking Cessation: Smoking cessation has been advised. For more information, call the [place] Tobacco Quit Line at 9-724-LLRX-NOW. - Services Needed Following services are medically necessary services: Nursing, Home Health Aide, Physical Therapy - Transfer Medications Home Medications: Baclofen [Lioresal] 10 mg PO TID 02/15/19 [History] Brimonidine 0.2% [Alphagan] 1 drop BOTH EYES BID 02/15/19 [History] Buspirone HCl [Buspar] 15 mg PO TID 02/15/19 [History] Carvedilol [Coreg] 3.125 mg PO BIDWM 02/15/19 [History] Cholecalciferol (D-3) [Vitamin D] 2,000 unit PO DAILY 02/15/19 [History] Gabapentin [Neurontin] 600 mg PO TID 02/15/19 [History] OxyCODONE/APAP 10/325 [Percocet 10/325 MG] 1 each PO Q6HR PRN 02/15/19 [History] Potassium Chloride Elixir [Potassium Chloride] 20 meq PO DAILY 02/15/19 [History] Sertraline [Zoloft] 50 mg PO DAILY 02/15/19 [History] amLODIPine [Norvasc] 5 mg PO DAILY 02/15/19 [History] traZODone [TraZODone] 100 mg PO HS 02/15/19 [History] Allergies/Adverse Reactions: Allergy/AdvReac Type Severity Reaction Status Date / Time No Known Allergies Allergy Verified 02/15/19 18:36 Certification: Further, I certify that my clinical findings support that this patient is homebound (i.e. absences from home require considerable and taxing effort and are for medical reasons or anabaptist services or infrequently or short duration when for other reasons) because: Homebound Reason: Patient requires assistance of a person or device to safely leave home Attestation: My signature below is to certify that this patient is under my care and that I, or nurse practitioner, or a physician's carpenter's assistant working with me, has a [id number] encounter with this patient.
== END 2019-02-18 15:18 | disposition home health service (06) ==
LOC: EMEROOARM 13:46 → 3BNU 13:46 → SUATTDRO 18:56 → 2NENU 20:25
PROVIDERS: ADMIT Internal Medicine; ATTEND Internal Medicine